=== PATIENT | female | born 1980 | race Caucasian/White ===

== ENCOUNTER → 2017-07-29 16:38 | Outpatient (CLI) | payer MEDICAID, SELFPAY ==
[2017-07-29 17:17] LABS: Hematocrit 38.4 % (37-47); Hemoglobin 12.8 g/dl (12.0-15.0); Mean Corp Hgb Conc 33.3 g/gl (32-36); Mean Corpuscular Hgb 31.3 pg (27.0-32.0); Mean Corpuscular Volume 93.9 fL (81-99); Platelet Count 225 K/mm3 (150-450); RBC Distribution Width CV 13.2 % (11.6-14.6); Red Blood Count 4.09 M/mm3 (4.2-5.4)
[2017-07-29 17:18] LABS: Scan Indicated on CBC? Y/N NO
[2017-07-29 17:51] LABS: Glucose Challenge Gest 1H 50g 163 mg/dL (70-140)
== END ==
PROVIDERS: Family Provider Internal Medicine; PCP Internal Medicine; Visit Provider Obstetrics & Gynecology
DX: Z34.83 Encounter for supervision of other normal pregnancy, third trimester (principal)
CPT/HCPCS: 36415; 82950; 85027

== ENCOUNTER → 2017-08-01 06:58 | Outpatient (CLI) | payer MEDICAID, SELFPAY ==
[2017-08-01 08:47] LABS: Glucose GTT-Gestation. Fasting 75 mg/dL (<105)
[2017-08-01 09:39] LABS: Glucose GTT-Gestational 1 Hr 119 mg/dL (<190)
[2017-08-01 11:08] LABS: Glucose GTT-Gestational 2 Hr 94 mg/dL (<165)
[2017-08-01 11:46] LABS: Glucose GTT-Gestational 3 Hr 77 L (<145)
== END ==
PROVIDERS: Family Provider Internal Medicine; PCP Internal Medicine; Visit Provider Obstetrics & Gynecology
DX: O99.810 Abnormal glucose complicating pregnancy (principal); Z3A.00 Weeks of gestation of pregnancy not specified
CPT/HCPCS: 36415; 82951; 82952

== ENCOUNTER → 2017-09-23 17:42 | Outpatient (CLI) | payer MEDICAID, SELFPAY ==
[2017-09-23 20:22] LABS: Group B Strep DNA By PCR Negative (Negative); Internal Control PASS; Probe Check PASS; Specimen Processing Control PASS
== END ==
PROVIDERS: Family Provider Internal Medicine; PCP Internal Medicine; Visit Provider Obstetrics & Gynecology
DX: Z36.85 Encounter for antenatal screening for Streptococcus B (principal)
CPT/HCPCS: 87081; 87653

== ENCOUNTER 2017-10-09 09:50 | Inpatient (IN) | payer MEDICAID, SELFPAY ==
[2017-10-09 10:01] LABS: ROM Internal Control Test YES-OK TO RESULT pt. (Internal QC); ROM Patient Test POSITIVE (Negative)
[2017-10-09] MEDS: Lactated Ringers 1,000 ML 50 ML IV ×2 (10:15→10:50)
[2017-10-09 10:30] LABS: Hematocrit 41.6 % (37-47); Hemoglobin 14.1 g/dl (12.0-15.0); Mean Corp Hgb Conc 33.9 g/gl (32-36); Mean Corpuscular Hgb 31.5 pg (27.0-32.0); Mean Corpuscular Volume 93.1 fL (81-99); Platelet Count 169 K/mm3 (150-450); RBC Distribution Width CV 13.3 % (11.6-14.6); RBC Distribution Width SD 43.9 fl (35.1-43.9); Red Blood Count 4.47 M/mm3 (4.2-5.4); White Blood Count 8.4 K/mm3 (4.4-11.0)
[2017-10-09 10:38] LABS: Scan Indicated on CBC? Y/N NO
[2017-10-09 10:39] VITALS: BMI 26.6
[2017-10-09] MEDS: Ondansetron 4 MG/2 ML Vial IV (11:55)
[2017-10-09] MEDS: Oxytocin 30 units/NS 500 ml 30 UNITS/500 ML IV.SOLN 334 UNITS IV (12:16)
--- NOTE | 2017-10-09 12:29 | PCM.OB.VAG ---
Vaginal Delivery Maternal Presentation: Active Labor Amniotic Membrane Rupture Type: Spontaneous at home Amniotic Fluid Description: Clear Final LINDSAY: 10/22/17 Final LINDSAY Source: US <20 weeks Gestational age: 38 Weeks and 1 Days Date of Procedure: 10/09/17 Pre-Operative Diagnosis: 38 1/7 wk labor. Post-Operative Diagnosis: Same Surgery/ Procedure Performed: Spontaneous Vaginal Delivery Type of Anesthesia: Epidural Description of Procedure: of a diaz viable female over intact perineum. Head delivered QUINTON. No nuchal cord, Shoulders delivered easily. OP and nares bulb suctioned and to maternal abdomen with spont cry. Delayed cord clamp., then clamped x two and cut. PP exam: no lacerations. Placenta delivered by spont expulsion, expression 3V normal appearing, intact with trailing membranes. EBL 200 cc Pt and infant tolerated delivery well. To recovery, stable condition. Ray Mandie Counts correct Presentation: QUINTON Placental Delivery Description: Spontaneous, Expressed Placenta Disposition: [facility] Cord Vessel Description: 3 Vessels Cord Entanglement: None Estimated Blood Loss: 200 Infant A gender: Female (1 minute): 7 (5 minute): 9 Episiotomy Description: None Laceration: None Medications given after delivery: IV Pitocin Complications: None
--- NOTE | 2017-10-09 12:37 | DCINST_ITS ---
Discharge Diet: No Restrictions Discharge Activity: May Shower, May Take a Tub Bath Return to work on:: 11/24/17 May resume sexual activity in: 4-6 weeks Additional Activity Instructions:: Nothing in the vagina for 4-6 weeks. You may return to work/school in 6 weeks. Additional Instructions: If you experience any of the following, contact your healthcare provider. * Bleeding that soaks a pad every hour for 2 hours * Fever 100.4 or higher * Unrelieved abdominal pain * Problems urinating (including inability to urinate or burning while urinating) . * Visual changes * Severe headache * Flu-like symptoms * Pain or redness in one of both of your breasts * Pain, warmth, tenderness or swelling in your legs, especially the calf area * Frequent nausea and vomiting * Symptoms of depression or anxiety If you experience any of the following, call 911 or go to the nearest Emergency Room. * Chest pain * Problems breathing * Seizure activity * Partial or complete paralysis of a body part, slurred speech, weakness or drooping of the face, or a sudden inability to walk or hold your balance Allergies/Adverse Reactions: Allergies No Known Allergies Allergy (Verified 01/14/17 18:36) Medications to take at Discharge Fluoxetine [Prozac] 80 mg PO DAILY 09/24/16 Ferrous Gluconate [Iron] 180 mg PO DAILY 01/14/17 Vits [Prenatabs FA] 1 tablet PO DAILY 01/14/17 Levothyroxine [Synthroid] 25 mcg PO DAILY 10/09/17 Please Follow Up With: Gaye Gastelum MD - [phone] When: Call to make an appointment with your doctor in 6 weeks. Primary Care Physician: Jami Ocampo MD [Primary Care Provider] - Proposed Discharge Date: 10/11/17
[2017-10-09] MEDS: Oxytocin 30 units/NS 500 ml 30 UNITS/500 ML IV.SOLN 167 UNITS IV (12:50)
[2017-10-09] MEDS: Naproxen 250 MG Tablet PO (13:02)
[2017-10-09] MEDS: 0.9% Saline Lock 10 ML Syringe IV (13:58)
[2017-10-09] MEDS: oxyCODONE 5 MG Tablet PO (14:12)
[2017-10-09 16:35] VITALS: BP 128/66; PULSE 69; RESP 20; TEMP 36.9
[2017-10-09 20:00] VITALS: BP 118/57; PULSE 76; RESP 16; TEMP 37.1
[2017-10-09] MEDS: Acetaminophen 500 MG Tablet 1000 MG PO (20:38)
[2017-10-10 00:37] VITALS: BP 112/60; PULSE 63; RESP 16; TEMP 37.1
[2017-10-10 04:17] VITALS: BP 126/59; PULSE 63; RESP 16; TEMP 36.6
--- NOTE | 2017-10-10 06:34 | PCM.PN.OB ---
Subjective: PPD#1 Doing well. Nursing. Pain contol ok. Would like to go home today. No concerns voiced. - Physical Exam General: Alert, Oriented x3, Cooperative, No apparent distress HEENT: Atraumatic Neck: Supple Abdomen: Soft - Fundus firm NT, inferior to umbilicus Neurological: Cranial nerves II-XII grossly intact Psych/Mental Status: Normal Affect Vital Signs Temp Pulse Resp BP 97.8 F 63 16 126/59 H 10/10/17 04:17 10/10/17 04:17 10/10/17 04:17 10/10/17 04:17 Oxygen Delivery Method Room Air Weight: 74.9 kg Body Mass Index (BMI) 26.6 Laboratory Tests Past 24 Hrs 10/09/17 10/09/17 10/09/17 09:44 10:15 10:15 WBC 8.4 RBC 4.47 Hgb 14.1 Hct 41.6 MCV 93.1 MCH 31.5 MCHC 33.9 RDW 13.3 RDW Differential 43.9 Plt Count 169 MPV 11.0 Vag Amniotic Fld Detect POSITIVE H Blood Type O POSITIVE Antibody Screen NEGATIVE Medical Necessity - Tobacco Use Smoking Status: Never smoker Assessment/Plan All Active Problems Overdose (Acute) Depression (Acute) PPD#1 Stable . Requests dischg today. RTO in 6 wk for pp check, prn sooner.
[2017-10-10] MEDS: Levothyroxine 25 MCG TABLET PO (06:43)
[2017-10-10] MEDS: Naproxen 250 MG Tablet PO (06:45)
[2017-10-10 08:21] VITALS: BP 122/60; PULSE 73; RESP 16; TEMP 36.7; O2SAT 98
[2017-10-10 14:00] VITALS: BP 114/69; PULSE 83; RESP 16; TEMP 36.7; O2SAT 97
== END 2017-10-10 14:00 | disposition home or self-care (01) | DRG 373 ==
LOC: WPOUT 09:50 → WP 12:15
PROVIDERS: Admitting Provider Obstetrics & Gynecology; Family Provider Internal Medicine; PCP Internal Medicine; Visit Provider Obstetrics & Gynecology
DX: O80 Encounter for full-term uncomplicated delivery (principal); Z3A.38 38 weeks gestation of pregnancy; Z37.0 Single live birth
CPT/HCPCS: 59025; 59050; 84112; 85027; 86850; 86900; 99218; J7120; A4216; G0378; J2405

== ENCOUNTER → 2018-03-23 11:39 | Outpatient (CLI) | payer MEDICAID, SELFPAY ==
[2018-03-23 14:51] LABS: Chlamydia Trachomatis by PCR Negative (Negative); Neisserai gonorrhoeae by PCR Negative (Negative); Probe Check PASS; Sample Adequacy Control PASS; Specimen Processing Control PASS
== END ==
PROVIDERS: Visit Provider Obstetrics & Gynecology
DX: Z11.3 Encounter for screening for infections with a predominantly sexual mode of transmission (principal)
CPT/HCPCS: 87491; 87591

== ENCOUNTER 2019-01-08 10:42 | Day surgery (SDC) | payer MEDICAID, SELFPAY ==
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
[2019-01-08] VITALS (10 sets, daily range): BP systolic 79–122; BP diastolic 47–70; PULSE 64–72; RESP 16; TEMP 36.3–36.9; O2SAT 96–100; BMI 22.3
--- NOTE | 2019-01-08 | FALS_PTH ---
PATIENT: JAMI HERNANDEZ LOC: [facility] [place] U#:[id number] AGE/SX: 38/F ROOM: RE01/08/[address]: Dr. Gaye Gastelum MD : 1980 BED: DIS: 01/08/2019 SPEC #: [id number] RECD: 01/08/19 14:07 STATUS: JENNIFER FABIAN #: [id number] NOEL: 01/08/19 00:[address]: Gaye Gastelum DEPT: SURGICAL PATHOLOGY RECD BY: Maksim Izquierdo ENTERED: 01/08/19 14:07 SP TYPE: FALL TUBES OTHR DR: Dr. Jami Ocampo MD Tissues: Fallopian tube Procedures: Surgery Specimen Level II HEADER OPERATION: Laparoscopic bilateral salpingectomy, IUD removal PRE-OP DIAGNOSIS: Sterilization request TISSUE SUBMITTED: Bilateral fallopian tubes MICROSCOPIC DIAGNOSIS Bilateral fallopian tubes, salpingectomy: Bilateral fallopian tubes including fimbrial ends, no pathologic diagnosis. SJ:[email or web address] 01/11/19 MICROSCOPIC DESCRIPTION Slides are reviewed. GROSS DESCRIPTION Received is one container labeled with the patient's name and designated bilateral fallopian tubes. The specimen consists of two fallopian tubes with an average length of 4.5 cm and has an average diameter of 0.5 cm. Both fallopian tubes have normal fimbriated ends. No mass lesions are identified. Enamel Dipper sections are submitted in two cassettes as follows: 1 - one fallopian tube, 2 - the other fallopian tube. / AM:giovanny 01/08/19 TC:4 CPT: 83698 x2
[2019-01-08 11:01] LABS: Internal QC Validated? YES +Cl - CLEAR BKGD; Pregnancy, Urine Negative Negative
[2019-01-08] MEDS: Lactated Ringers 1,000 ML 150 ML IV ×2 (11:28→13:41)
--- NOTE | 2019-01-08 11:53 | PCM.DC.TUB ---
Discharge Diet: No Restrictions Discharge Activity: May not drive while taking narcotic pain medications., May Shower, May Take a Tub Bath Return to work on:: 01/11/19 May resume sexual activity in: 1 week - when comfortable. Additional Activity Instructions:: Ambulate often the next week after surgery. Nothing in the vagina for 5 days. Call your doctor if you observe: Fever of 101 or Higher, Uncontrolled pain Change Dressing in (Days):: 7 Remove Dressing in (days):: 7 Cleanse incision/area with: Soap & Water, Keep Dressing Clean & Dry Additional Instructions: You may take two Ibuprofen or two Aleve by mouth every 6 hrs as needed for milder pain Take Tylenol #3 1 tablet every 6 hrs for moderate to severe pain. Rest on day of surgery Resume activity as comfortable on the day after surgery. Allergies/Adverse Reactions: Allergies No Known Allergies Allergy (Verified 01/08/19 11:13) Medications to take at Discharge Fluoxetine [Prozac] 80 mg PO QHS 09/24/16 Multivitamin [Multivitamins] 1 ea PO DAILY 12/24/18 Slo Iron Tab 50 mg PO DAILY 12/24/18 busPIRone [Buspar] 10 mg PO BID 12/24/18 Acetaminophen/Codeine #3 [Tylenol#3] 1 tablet PO Q6H PRN PRN 2 Days #5 tablet 01/08/19 The following prescriptions were given: Acetaminophen/Codeine #3 [Tylenol#3] 1 tablet PO Q6H PRN PRN 2 Days #5 tablet PRN Reason: Mod-Severe Pain (4-10/10) Transmission Status: Sent to [facility] Primary Care Physician: Jami Ocampo MD [Primary Care Provider] - Test Results: Test results from this visit will be discussed in further detail at your follow-up appointment, if applicable. Please Follow Up With: Gaye Gastelum MD - [phone] When: Office appointment in 2 wks for postoperative follow up. Proposed Discharge Date: 01/08/19
--- NOTE | 2019-01-08 12:34 | OP.PCM_ITS ---
Report of Operation Date of Procedure: 01/08/19 Pre-Operative Diagnosis: sterilization request. Requests IUD removal Post-Operative Diagnosis: Same Surgery/Procedure Performed:: Laparoscopic bilateral salpingectomy; removal of IUD Description of Surgical Findings:: Findings: There is a normal-appearing anteverted uterus. Fallopian tubes and ovaries are within normal limits. Gross inspection of the bowel, omentum, liver edge and appendix are also within normal limits. Photos were taken of the uterus and ovaries after the bilateral partial salpingectomy, and of the right upper quadrant/liver edge and appendix. test inspection engineer: Rashad Miles Type of Anesthesia:: General Anesthesiologist: Óscar Odom CRNA Special Medications: 1/4 % marcaine with epinephrine 10 cc as subcutaneous skin block. Toradol 30 mg IV times one Specimen's removed: bilateral fallopian tubes Drains: althea deng Estimated Blood Loss (mL): 10 Fluids Replaced: LR Description of Procedure: Narrative account: After the risks, benefits, alternatives of the procedure have been reviewed with the patient, informed consent was obtained. The patient was taken to the operating room with an IV running. She was positioned on the operating table in dorsal supine position, where she was given general anesthesia. Once asleep she was repositioned into the dorsal lithotomy position and prepped and draped in the usual sterile fashion. A red Deng catheter was used to drain the bladder prior to initiating the case. A Graves speculum was placed into the vagina and the cervix brought into view. The IUD string was visualized and grasped with a ring forceps and removed and set aside to be discarded later. The speculum was removed. A sponge stick was then placed into the cervix to allow manipulation of the cervix and uterus during the case. Attention was then turned to the anterior abdominal wall where 0.25% percent Marcaine with epinephrine was instilled at the suprapubic and infraumbilical skin and at a point midway between the two, in the midline. Skin incisions were then created in the midline at the suprapubic skin, at the infraumbilical skin, and at a point in the midline midway between the two. While maintaining upward traction of the anterior abdominal wall, a Veress needle was inserted through the umbilical incision into the peritoneal cavity. There was free drop of saline, low opening pressure and free flow of CO2 noted. Once the intra-abdominal pressure had reached 12 mmHg the Veress needle was removed and a bladeless 5 mm trocar was inserted through the infraumbilical skin incision into the peritoneal cavity. Correct placement was confirmed using the scope. Under direct visualization then with the patient in Trendelenburg position, a bladeless 5 mm trocar was inserted in through the suprapubic skin incision into the peritoneal cavity and at the mid lower abdominal incision midway between the infraumbilical and suprapubic trocars. The uterus was anteverted and both ovaries and fallopian tubes were within normal limits. The right fallopian tube was grasped and retracted medially and using a LigaSure device the right fallopian tube was excised from the ovary and mesosalpinx to the level of the uterine fundus. Excellent hemostasis was noted at the excision site. The right fallopian tube was brought through the suprapubic trocar and set aside for later pathology review. In a similar manner the left fallopian tube was grasped and retracted medially and the fallopian tube was excised and removed from the abdominal cavity through the suprapubic trocar. The fallopian tubes were sent to pathology. Excellent hemostasis was noted by visualization of the pelvis, ovaries, and remaining mesosalpinx. Photos were taken of the uterus and bilateral remaining ovaries and of the right upper quadrant and liver edge and normal appearing appendix At this point the procedure was terminated. The pneumoperitoneum was reduced and the instruments and trocars were removed from the anterior abdominal wall skin. The skin incisions were closed with 4-0 Monocryl in a subcuticular fashion Dermabond and op sites were applied to the skin. The sponge stick was then removed from the vagina. The patient was returned to dorsal supine position. She was awakened from general anesthesia. She was transferred to the recovery room bed in stable condition after tolerating the procedure well. Sponge, lap, needle and instrument counts were correct x two. Medications given preop and intra-op included: 10 cc of quarter percent Marcaine with epinephrine used as a johnson bcutaneous block, and Toradol 30 mg IV x1. For a complete listing of medications given preop and intra-op please see the anesthesia record. - Complications none - Admit VTE Documentation VTE Present on Admission: No VTE Mechan Device Prophylaxis: SCD's VTE Pharm Prophylaxis ordered?: No
== END 2019-01-08 14:29 | disposition home or self-care (01) ==
LOC: SDC 10:43 → AC 10:44
PROVIDERS: Anesthesiology; Family Provider Internal Medicine; PCP Internal Medicine; Referring Provider Obstetrics & Gynecology; Visit Provider Obstetrics & Gynecology
PROC: (CPT 58661; principal; 2019-01-08 12:00)
DX: Z30.2 Encounter for sterilization (principal); D64.9 Anemia, unspecified; F32.9 Major depressive disorder, single episode, unspecified; Z79.899 Other long term (current) drug therapy
CPT/HCPCS: 58301; 58661; 81025; 88302; J7120; J2405

== ENCOUNTER → 2020-10-23 09:15 | Outpatient (CLI) | payer OTHER, MEDICAID, SELFPAY ==
[2019-01-08 11:14] VITALS: BMI 22.3
[2020-10-23 11:50] LABS: Hematocrit 40.6 % (37-47); Hemoglobin 12.9 g/dL (12.0-15.0); Mean Corp Hgb Conc 31.8 g/dL (32-36); Mean Corpuscular Volume 91.2 fL (81-99); Mean Platelet Vol. 9.8 fl (6.2-12.0); Platelet Count 296 K/mm3 (150-450); RBC Distribution Width CV 12.7 % (11.6-14.6); RBC Distribution Width SD 42.2 fl (35.1-43.9); Red Blood Count 4.45 M/mm3 (4.2-5.4); White Blood Count 5.3 K/mm3 (4.4-11.0)
[2020-10-23 12:14] LABS: Estradiol 93.4 pg/mL; Follicle Stimulating Hormone 6.4 mIU/mL; Luteinizing Hormone 6.1 mIU/mL; Prolactin 12.1 ng/mL; T4 Free Direct 0.73 ng/dL (0.76-1.46); Thyroid Stim Hormone (TSH) 1.33 uIU/mL (0.358-3.74)
[2020-10-26 13:28] LABS: HPV APTIMA, High Risk Negative (Negative)
== END ==
PROVIDERS: PCP Internal Medicine; Visit Provider Obstetrics & Gynecology
DX: N93.9 Abnormal uterine and vaginal bleeding, unspecified (principal); Z12.4 Encounter for screening for malignant neoplasm of cervix
CPT/HCPCS: 36415; 82670; 83001; 83002; 84146; 84439; 84443; 85027; 87624; 88175; G0145

== ENCOUNTER 2021-07-17 14:49 | Outpatient (CLI) | payer OTHER, MEDICAID, SELFPAY ==
--- NOTE | 2021-07-17 14:30 | EMB_PTH ---
PATIENT: JAMI HERNANDEZ LOC: [facility] U#:[id number] AGE/SX: 41/F ROOM: RE07/17/[address]: Dr. Yousif Iyer MD : 1980 BED: DIS: 07/17/2021 SPEC #: [id number] RECD: 07/17/21 15:20 STATUS: JENNIFER REAlejandro #: [id number] NOEL: 07/17/21 14:[address]: Yousif Iyer DEPT: SURGICAL PATHOLOGY RECD BY: Raghu Kc ENTERED: 07/18/21 09:51 SP TYPE: ENDOM BX/C VINITA DR: Dr. Jami Ocampo MD Tissues: Endometrium, NOS Procedures: Surgery Specimen Level IV HEADER OPERATION: Endometrial biopsy PRE-OP DIAGNOSIS: Abnormal uterine bleeding TISSUE SUBMITTED: Endometrial biopsy MICROSCOPIC DIAGNOSIS Endometrial biopsy: Interval endometrium with focal granular and stromal breakdown. ADIA:[email or web address] 07/19/2021 MICROSCOPIC DESCRIPTION Slides are reviewed. GROSS DESCRIPTION Received in fixative is one container labeled with the patient's name and designated endometrial biopsy. The specimen consists of multiple fragments of hemorrhagic soft tissue that in aggregate measure 3 x 2.5 x 0.2 cm. The specimen is totally submitted in one cassette. / SJ:giovanny 07/18/2021 TC:5 CPT: 43228
== END 2021-07-17 23:59 | disposition home or self-care (01) ==
LOC: LABSPEC 14:53
PROVIDERS: PCP Internal Medicine; Visit Provider Obstetrics & Gynecology
DX: N93.9 Abnormal uterine and vaginal bleeding, unspecified (principal)
CPT/HCPCS: 88305

== ENCOUNTER 2021-11-05 08:00 | Day surgery (SDC) | payer OTHER, MEDICAID, SELFPAY ==
[2021-11-05 08:14] VITALS: BP 105/60; PULSE 72; RESP 16; TEMP 36.3; O2SAT 100; BMI 20.9
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
[2021-11-05] MEDS: Lactated Ringers 1,000 ML 30 ML IV (08:29)
--- NOTE | 2021-11-05 09:25 | EMB_PTH ---
PATIENT: JAMI HERNANDEZ LOC: [facility] [place] U#:[id number] AGE/SX: 41/F ROOM: RE11/05/[address]: Dr. Yousif Iyer MD : 1980 BED: DIS: 11/05/2021 SPEC #: [id number] RECD: 11/05/21 13:53 STATUS: JENNIFER REAlejandro #: [id number] NOEL: 11/05/21 09:[address]: Yousif Iyer DEPT: SURGICAL PATHOLOGY RECD BY: Yulisa Baptiste ENTERED: 11/06/21 08:05 SP TYPE: ENDOM BX/C VINITA DR: Dr. Jami Ocampo MD Tissues: Endometrium, NOS Procedures: Surgery Specimen Level IV HEADER OPERATION: Hysteroscopy, D & C Chiquis, endometrial ablation PRE-OP DIAGNOSIS: Abnormal uterine and vaginal bleeding TISSUE SUBMITTED: Endometrial curettings MICROSCOPIC DIAGNOSIS Endometrial curettings: Secretory endometrium. SJ:[email or web address] 11/07/2021 MICROSCOPIC DESCRIPTION Slides are reviewed. GROSS DESCRIPTION Received in fixative is one container labeled with the patient's name and designated endometrial curettings. The specimen consists of multiple irregular fragments of rose-brown soft tissue that in aggregate measure 5 x 3 x 0.2 cm. The entire specimen is submitted in two cassettes. / SJ:rg 11/06/2021 TC:4 CPT: 18978
--- NOTE | 2021-11-05 09:59 | DCINST_ITS ---
Discharge Instructions Diet Discharge Diet: No restrictions Activity Discharge Activity: Return to Normal Activity, May Drive and May Shower May resume sexual activity in: 4-6 weeks Weight Bearing Status: Weight bearing as tolerated Dressing / Incision Call your doctor if your incision/area has: Continuous Slow Oozing and Foul Smelling Discharge Call your doctor if you observe: Fever of 101 or Higher, Shortness of breath and Chest pain Follow Up Care Please Follow Up With: Yousif Iyer MD When: 2 weeks postoperatively Test Results: Test results from this visit will be discussed in further detail at your follow- up appointment, if applicable. Discharge Plan Admission Attending Provider: Yousif Iyer Primary Care Provider: Jami Ocampo Discharge Orders/Prescriptions Prescriptions: No Action fluoxetine 20 MG capsule 80 mg PO QHS buspirone 5 MG tablet 15 mg PO DAILY [place] Tab 50 mg PO DAILY amitriptyline 10 mg Tablet 10 mg PO QHS eszopiclone [Lunesta] 3 mg Tablet 3 mg PO QHS meloxicam 15 mg Tablet 15 mg PO DAILY Referrals / Follow Up: Jami Ocampo MD [Primary Care Provider] - Disposition Disposition (needs filled in before D/C Order can be placed): Home, Self Care
--- NOTE | 2021-11-05 09:59 | PCM.OPRPT ---
Report of Operation Date of Procedure: 11/05/21 Pre-Operative Diagnosis: Abnormal uterine bleeding Post-Operative Diagnosis: Abnormal uterine bleeding Surgery/Procedure Performed:: Hysteroscopy, dilation and curettage, endometrial ablation via Chiquis device Description of Surgical Findings:: Surgeon: Yousif Iyer MD Anesthesia: MAC EBL: 10 cc Urine output: Minimal IV fluids: 400 cc Complications: None Specimen: Endometrial curettings Findings: No pathology noted on hysteroscope. Chiquis device set to 6 cm. Post procedure hysteroscope with no new pathology Consent: Patient with abnormal uterine bleeding elects for hysteroscopy, dilation and curettage, endometrial ablation via Chiquis. Patient understands the risk of the procedure include but are not limited to visceral or vascular injury, prolonged hospitalization, blood loss need for transfusion, reoperation. Patient state understanding and wished to proceed. All questions were answered and consent was signed. Procedure: Patient was brought back to the OR where MAC anesthesia was found to be adequate. Patient was prepared and draped in a dorsolithotomy position with yellowfin stirrups. A weighted speculum was placed in the posterior aspect of the vagina and cervical dilators were used to dilate the cervix. Hysteroscope was inserted under direct visualization and above findings were noted. Sharp curettage was performed and sent to pathology. Uterine cavity length found to be 9 cm, cervical length found to be 3 cm. Chiquis device set to 6 cm and inserted under direct visualization. Safety test passed x2. 2 minutes of endometrial ablation performed. Post procedure hysteroscope was inserted and above findings were noted. Good hemostasis was noted. All counts were correct x2. Patient tolerated the procedure well and was brought to recovery in a stable condition.
[2021-11-05 10:03] VITALS: BP 105/60
[2021-11-05 10:10] VITALS: BP 105/60; BP 95/49; PULSE 65; RESP 16; O2SAT 100
[2021-11-05] MEDS: Ketorolac 30 MG/ML Syringe IV (10:11)
[2021-11-05 10:15] VITALS: BP 105/60; BP 94/67; PULSE 69; RESP 16; O2SAT 99
[2021-11-05 10:30] VITALS: BP 105/60; BP 107/69; PULSE 69; RESP 16; TEMP 37.5; O2SAT 99
[2021-11-05 10:54] VITALS: BP 105/60; BP 112/65; PULSE 84; RESP 16; TEMP 36.9; O2SAT 98
== END 2021-11-05 11:01 | disposition home or self-care (01) ==
LOC: SDC 08:01 → AC 08:02
PROVIDERS: PCP Internal Medicine; Referring Provider Obstetrics & Gynecology; Visit Provider Obstetrics & Gynecology
PROC: 0U5B8ZZ Destruction of Endometrium, Via Natural or Artificial Opening Endoscopic (ICD-10-PCS; CPT 58558; principal; 2021-11-05 09:10)
DX: N93.9 Abnormal uterine and vaginal bleeding, unspecified (principal); F32.9 Major depressive disorder, single episode, unspecified; F41.9 Anxiety disorder, unspecified; E61.1 Iron deficiency; F84.0 Autistic disorder; Z79.899 Other long term (current) drug therapy
CPT/HCPCS: 58563; 88305; J7120; J2405

== ENCOUNTER 2024-08-30 08:00 | Outpatient (RCR) | payer MEDICAID, SELFPAY ==
[2024-09-01 11:49] VITALS: BP 121/50; PULSE 71
== END 2024-09-25 23:59 ==
LOC: BHIOP 08:00
PROVIDERS: PCP Internal Medicine; Referring Provider Psychiatry & Neurology Psychiatry; Visit Provider Psychiatry & Neurology Psychiatry
DX: F33.2 Major depressive disorder, recurrent severe without psychotic features (principal); F41.0 Panic disorder [episodic paroxysmal anxiety]; F43.10 Post-traumatic stress disorder, unspecified; Z86.59 Personal history of other mental and behavioral disorders
CPT/HCPCS: H2012; H2020; S9480; T1002; 90834; 90837

== ENCOUNTER 2024-09-27 07:28 | Outpatient (RCR) | payer MEDICAID, SELFPAY ==
[2024-09-26 00:21] VITALS: BP 121/50; PULSE 71
== END 2024-10-22 14:41 | disposition home or self-care (01) ==
LOC: BHIOP 07:28
PROVIDERS: PCP Internal Medicine; Referring Provider Psychiatry & Neurology Psychiatry; Visit Provider Psychiatry & Neurology Psychiatry
DX: F33.2 Major depressive disorder, recurrent severe without psychotic features (principal); F41.0 Panic disorder [episodic paroxysmal anxiety]; F43.10 Post-traumatic stress disorder, unspecified; Z86.59 Personal history of other mental and behavioral disorders
CPT/HCPCS: H2020; S9480; 90837

== ENCOUNTER 2024-11-02 08:00 | Outpatient (RCR) | payer MEDICAID, SELFPAY ==
--- NOTE | 2024-11-02 10:05 | BH.SGPN.GN ---
Behaviors/Verbalizations/Mental Status: []Pt alert and oriented, casually dressed and groomed. Eye contact fair. Motor activity appropriate. Speech within normal limits. Affect constricted, mood dysthymic. Thoughts linear, logical, no signs of hallucinations or delusions Client Response/Progress/Benefit: [] Pt took notes and contributed to group discussions. Attentive during psychoeducation on growth mindset. Interactive group discussion on fixed mindset in which group verbalized their current fixed mindsets and how they affect their mental health. Pt shared common fixed mindset thoughts they have. Pt shared a personal fixed thought I've failed in every way possible in life.? Pt able to connect negative impact fixed thoughts have on functioning. Pt benefited from increased awareness of growth mindset and fixed thoughts and how fixed thoughts impact their mental health. Will continue IOP tx to improve emotion regulation, challenge negative thoughts, and prevent decompensation.
--- NOTE | 2024-11-02 10:44 | BH.MDN ---
Multi-Disciplinary Note Note 45-min Individual: Time Started:: 09:00 Date: 11/02/24 Purpose of session/treatment goals addressed:: Purpose of session was to build rapport, gather background, and identify treatment goals. Eye Contact:: Good Motor Activity:: Restless Appearance:: Casual Speech:: Appropriate Mood:: Anxious and Depressed Affect:: Congruent Thoughts:: Linear, Logical and No evidence of hallucinations/delusions noted Staff Interventions:: thought challenging, CBT techniques, strengths perspective, treatment planning and goal setting Client Response:: Client reported she has returned to IOP because she recognizes she really needs the help to feel better. Client stated she had a lot going on that was negatively impacting her ability to be consistent with her attendance. Client reported in the few weeks she was not in IOP she had significant struggles with depression and suicidal thoughts. Client stated she recognizes if she continues to avoid talking about the uncomfortable things she will continue to struggle with significant mental health issues. Client reported since returning to IOP she would like to learn healthy coping skills with strategies to be more consistent with follow through. Client stated she would also like to work on building her self-esteem and view of self. Client reported she had learned in the first time in IOP how frequently she talks negatively to herself and would like to work on challenging this negativity. Client and therapist reviewed behavior activation. Client stated she would like to work on decreasing how much time she spends in her basement bedroom because she can see how this doesn't help her mood. Client worked with therapist to identify several behavior changes that client could start focusing on to help with improving mood. Risks/Concerns:: Client reports chronic suicidal thoughts. Client denies active suicidal intention, plan, or intention. Identifies children as protective factor. Progress Toward Goals/Plan:: Progress limited, client reporting increased depression and thoughts of for the last few weeks. Client stated she has returned over the last few of weeks of staying in her bed most of the day and isolating from family. Client stated she is hoping to learn better coping skills, improve ability to manage stressors, and improve view of self. Plan is for client to continue IOP to improve daily functioning, challenge distortions, and prevent decompensation.
--- NOTE | 2024-11-02 11:10 | BH.SGPN.GN ---
Behaviors/Verbalizations/Mental Status: []Pt alert and oriented, neatly dressed and groomed. Eye contact good. Motor activity appropriate. Speech within normal limits. Affect congruent, mood dysthymic. Thoughts linear, logical, no signs of hallucinations or delusions. Client Response/Progress/Benefit: [] Pt was an active participant during activity and discussion. Pt did well to remain attentive and participate as group worked on identifying characteristics and benefits of adopting a growth mindset. Worked with fellow participants in reframing the example fixed thoughts into growth mindset thoughts. Pt worked on changing own fixed thought. Pt?s reframed thought was ?I can find the manning and two things can be true.? Pt attentive during discussion about different strategies that can help with fostering a growth mindset. Pt appeared to benefit from challenging own thoughts and engaging in the activity. Pt will continue IOP tx to increase distress tolerance, improve daily functioning, and increase self-confidence. Narrative Note: []
--- NOTE | 2024-11-02 14:24 | BH.MTP ---
Master Treatment Plan Patient Information Program Physician:: Dr. Souza Primary Therapist:: Georgina Cartagena, [facility] Psychiatric Diagnoses Psychiatric Diagnoses:: 1. Major depressive disorder, recurrent, severe without psychosis F33.2 Diagnosis Code(s):: F33.2 Problem/Goal #1 Problem/Goal #1 Stated Goal:: Client will reduce depressive symptoms, feelings of worthlessness, and anhedonia due to Major Depressive Disorder through Intensive Outpatient Program. Description of Barriers: Potential barriers to treatment include negative self-talk, anxious worries, skepticism towards trying healthy coping skills, and psychosocial stressors. Functional Impact: Brittany is a 44y/o female who presented to [facility] IOP program for further evaluation and treatment of depression and anxiety. She initially established with the IOP program 09/01/2024 due to having passive thoughts of , depression, and anxiety. She fell out of the program due to having difficulty leaving her house due to concerns for her appearance which she is struggled with for a long time and then had a planned absence. She now represents to continue the program. She reports that she has had a lot of stress recently but she feels she is handling it well but is still waiting for the other shoe to drop. Has been having mood that has been up and down and last week she felt very down. She notes she was started on pramipexole for RLS a couple of weeks ago and after she took it she became very depressed and had thoughts of suicide when stopped the medication and has not had any of those thoughts since then but is still been struggling with her mood. She reports she gets side effects and mood changes from most medicines and that even amoxicillin made her feel depressed before. Notes she is tried almost everything for mood and sleep without significant improvement. Does report she has low energy and has been having a lot of anxiety. One of her main complaints is sleep, she said when she falls asleep hydroxyzine helps her stay asleep but she has difficulty falling asleep and often feels anxious before bed. She takes Lunesta which sometimes works well and other times does not seem to work. Tried THC Gummies at bedtime without significant improvement. Was on Ambien 20 mg for many years but stopped taking this 11 years ago, she did try this again as it had been effective but she noticed it caused decreased mood so she is on Lunesta however on maximum dose. She has been on Prozac for very long time and she is unsure how helpful this is but it has been one of the medication she has been able to tolerate. Not presently having any SI/HI. No AH/VH. 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 Of note patient was placed on BuSpar 10 mg twice daily by the previous physician she is on IOP which she is no longer taking this, she is unsure why manage she is unsure if she has had an adverse effect or if it just did not work, discussed that it was still a low dose and there was room for titration if this needed to be trialed again Objectives Objective #1: Stated Objective: Client will learn and utilize 2-3 healthy coping strategies to manage depressive symptoms. Interventions: Therapist will utilize CBT techniques to assist client with understanding the connection between thoughts, feelings and behaviors. Education will be provided on behavioral activation. Therapist will assist client in learning internal coping strategies to manage depressive symptoms, along with helping client identify triggers. Discharge Criteria: Client will have achieved this goal when can verbalize and has practiced at least 2 healthy coping strategies that successfully manage depressive symptoms. Target Date: 12/14/24 Review Date: 11/30/24 Objective #2: Stated Objective: Identify at least 2-3 negative self-talk messages used to reinforce feelings of worthlessness and replace thoughts with positive messages. Interventions: Therapist will help client identify distorted, negative beliefs about self and replace with more realistic, affirmative messages. Discharge Criteria: Client will have achieved this goal when can verbalize at least 2 negative self-talk messages and effectively replace those thoughts with affirmative messages. Target Date: 12/14/24 Review Date: 11/30/24 Problem/Goal #2 Problem/Goal #2 Stated Goal:: Client will reduce overall frequency, intensity, and duration of the anxiety so that daily functioning is not impaired. Description of Barriers: Potential barriers to treatment include negative self-talk, anxious worries, skepticism towards trying healthy coping skills, and psychosocial stressors. Functional Impact: Brittany is a 44y/o female who presented to [facility] IOP program for further evaluation and treatment of depression and anxiety. She initially established with the IOP program 09/01/2024 due to having passive thoughts of , depression, and anxiety. She fell out of the program due to having difficulty leaving her house due to concerns for her appearance which she is struggled with for a long time and then had a planned absence. She now represents to continue the program. She reports that she has had a lot of stress recently but she feels she is handling it well but is still waiting for the other shoe to drop. Has been having mood that has been up and down and last week she felt very down. She notes she was started on pramipexole for RLS a couple of weeks ago and after she took it she became very depressed and had thoughts of suicide when stopped the medication and has not had any of those thoughts since then but is still been struggling with her mood. She reports she gets side effects and mood changes from most medicines and that even amoxicillin made her feel depressed before. Notes she is tried almost everything for mood and sleep without significant improvement. Does report she has low energy and has been having a lot of anxiety. One of her main complaints is sleep, she said when she falls asleep hydroxyzine helps her stay asleep but she has difficulty falling asleep and often feels anxious before bed. She takes Lunesta which sometimes works well and other times does not seem to work. Tried THC Gummies at bedtime without significant improvement. Was on Ambien 20 mg for many years but stopped taking this 11 years ago, she did try this again as it had been effective but she noticed it caused decreased mood so she is on Lunesta however on maximum dose. She has been on Prozac for very long time and she is unsure how helpful this is but it has been one of the medication she has been able to tolerate. Not presently having any SI/HI. No AH/VH. 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 Of note patient was placed on BuSpar 10 mg twice daily by the previous physician she is on IOP which she is no longer taking this, she is unsure why manage she is unsure if she has had an adverse effect or if it just did not work, discussed that it was still a low dose and there was room for titration if this needed to be trialed again Objectives Objective #1: Stated Objective: Client will learn and implement 2-3 calming skills to reduce overall anxiety and manage anxiety symptoms. Interventions: Therapist and group sessions will help client identify physiological warning signs of anxiety, increase awareness of thoughts that increase anxiety, and identify behaviors that reinforce anxious symptoms. Group and individual counseling will teach client calming skills to help manage anxious symptoms. Discharge Criteria: Client will have achieved this goal when can verbalize at least 2 calming skills and reports skills successfully help reduce anxious symptoms. Target Date: 12/14/24 Review Date: 11/30/24 Objective #2: Stated Objective: Client will identify 2-3 anxiety triggers and 2 coping skills to use when feeling anxious. Interventions: Therapist will assist client in exploring what triggers anxiety and teach client coping strategies to effectively manage anxiety symptoms. Discharge Criteria: Client will have met this goal when can identify at least 2 triggers to anxiety and verbalize two healthy ways to cope with feelings of anxiety. Target Date: 12/14/24 Review Date: 11/30/24
--- NOTE | 2024-11-02 14:31 | BH.PSA ---
Source of Information Presenting Problems/Circumstances Problems, Referral Source, Mental Status, Client: This is an update to completed Psychosocial Assessment dated 08/30/24. Since last psychosocial was recent, there has not been many changes to client's history. Refer to original psychosocial for additional detail and past history. Brittany is a 44y/o female who presented to [facility] IOP program for further evaluation and treatment of depression and anxiety. She initially established with the IOP program 09/01/2024 due to having passive thoughts of , depression, and anxiety. She fell out of the program due to having difficulty leaving her house due to concerns for her appearance which she is struggled with for a long time and then had a planned absence. She now represents to continue the program. She reports that she has had a lot of stress recently but she feels she is handling it well but is still waiting for the other shoe to drop. Mental Status Memory Recent Memory: Fair Remote Memory: Fair Concentration Concentration: Poor Eye Contact Eye Contact: Fair Speech Speech: Articulate and Congruent Thought Process Thought Process: Ruminations Insight: Fair Judgment: Fair Behavior: Anxious Orientation Orientation: Time, Person, Place and Situation Appearance Appearance: Appropriate Mood Mood: Anxious and Depressed Affect Affect: Alert Suicide Assessment Suicidal Ideation Have you ever felt like hurting yourself?: Yes Please explain:: Has been having mood that has been up and down and last week she felt very down. She notes she was started on pramipexole for RLS a couple of weeks ago and after she took it she became very depressed and had thoughts of suicide when stopped the medication and has not had any of those thoughts since then but is still been struggling with her mood. See previous psychosocial for detailed history of suicidal thoughts and behavior. Suicidal Intentional Rating Scale (SIRS): Suicidal thoughts (past) Physician Notification Violent Behavior/Abuse History Homicidal Ideation Do you have any homicidal thoughts? If so, explain:: No Adult Social History Age 18 to Present Describe your current support system:: Parents Business Resiliency Manager's Assessment Client's Needs What are the client's feelings about the program?: Client stated she really enjoyed the program her first time attending and is looking forward to being back in the program. What are the client's goals?: Client would like to learn skills to manage depression, improve view of self, and learn ways to challenge distortions. What are the client's strengths?: Resilience and intelligent. Diagnoses Diagnoses Diagnosis #1:: F33.2 Interpretive Summary Interpretive Summary Interpretive Summary: Brittany is a 44y/o female who presented to [facility] IOP program for further evaluation and treatment of depression and anxiety. She initially established with the IOP program 09/01/2024 due to having passive thoughts of , depression, and anxiety. She fell out of the program due to having difficulty leaving her house due to concerns for her appearance which she is struggled with for a long time and then had a planned absence. She now represents to continue the program. She reports that she has had a lot of stress recently but she feels she is handling it well but is still waiting for the other shoe to drop. Has been having mood that has been up and down and last week she felt very down. She notes she was started on pramipexole for RLS a couple of weeks ago and after she took it she became very depressed and had thoughts of suicide when stopped the medication and has not had any of those thoughts since then but is still been struggling with her mood. She reports she gets side effects and mood changes from most medicines and that even amoxicillin made her feel depressed before. Notes she is tried almost everything for mood and sleep without significant improvement. Does report she has low energy and has been having a lot of anxiety. One of her main complaints is sleep, she said when she falls asleep hydroxyzine helps her stay asleep but she has difficulty falling asleep and often feels anxious before bed. She takes Lunesta which sometimes works well and other times does not seem to work. Tried THC Gummies at bedtime without significant improvement. Was on Ambien 20 mg for many years but stopped taking this 11 years ago, she did try this again as it had been effective but she noticed it caused decreased mood so she is on Lunesta however on maximum dose. She has been on Prozac for very long time and she is unsure how helpful this is but it has been one of the medication she has been able to tolerate. Not presently having any SI/HI. No AH/VH. 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 Treatment Plan Recommendations Recommendations Guidelines Recommendations:: The patient will begin IOP in [facility] at [facility]. The program's structure, support, education, and therapy aim to prevent deterioration of symptoms and avoid the need for PHP or inpatient hospitalization.
--- NOTE | 2024-11-03 09:00 | BH.SGPN.GN ---
Behaviors/Verbalizations/Mental Status: [] Pt alert and oriented, neatly dressed and groomed. Eye contact fair. Motor activity appropriate. Speech within normal limits. Affect congruent, mood depressed. Thoughts linear, logical, no signs of hallucinations or delusions. Reviewed pt?s symptom tracker, no risk for suicidal ideation, plan, or intent 11/03/24. Client Response/Progress/Benefit: []Pt was an active participant in group discussions. Attentive. Able to identify mental health wins including being back in IOP and looking forward to it and trying to keep an open-mind. Pt's stressor today is ?I have so many stressors and I stopped coming to IOP for a while.? The group offered pt encouragement and emotional support which pt reported was helpful. Pt is feeling apprehensive.? this morning. Pt receptive to feedback from peers. Benefited from group support, encouragement, and feedback. Will continue IOP tx to prevent decompensation, improve daily functioning, and increase use of healthy coping skills. ?? Narrative Note: []
--- NOTE | 2024-11-03 10:15 | BH.SGPN.GN ---
Behaviors/Verbalizations/Mental Status: [] Client alert and oriented, casually dressed and groomed. Eye contact good. Motor activity appropriate. Speech within normal limits. Affect congruent, mood anxious and depressed. Thoughts linear, logical, no signs of hallucinations or delusions. Client Response/Progress/Benefit: [] Client responded well to session AEB contributing to discussion, taking notes, and listening attentively to others. Group discussed the benefits of managed anger and anger as a secondary emotion. Client participated in anger iceberg discussion. Group reported outward personal signs of anger as lashing out verbally, physical fights, destruction of property, self-harm, and self-sabotage. Group Identified underlying emotions that contribute to anger including being dismissed, rejection, assumptions, being lied too, and micromanaging. Appeared to benefit from increased knowledge of the underlying emotions that impact anger and increased self-awareness of the internal and external consequences of anger. Client will continue IOP program to prevent decompensation, stabilize mood, and increase healthy coping. Narrative Note: []
--- NOTE | 2024-11-03 11:15 | BH.SGPN.GN ---
Behaviors/Verbalizations/Mental Status: [] client alert and oriented, casually dressed and groomed. Eye contact good. Motor activity appropriate. Speech within normal limits. Affect congruent, mood euthymic. Thoughts linear, logical, no signs of hallucinations or delusions. Client Response/Progress/Benefit: [] Client was an engaged participant throughout group AEB client providing input throughout discussion. Client contributed to the continued discussion of how people express anger as well as the underlying emotions of anger. Client participated in group activity that highlighted strategies to cope with anger. Group brainstormed healthy coping skills to help prevent anger and cope with it in the moment which included: mindfulness, deep breathing, journaling, going outside, and music. Client stated something she learned from today's group is importance of breaking her anger cycle by challenging her thoughts. Client appeared to benefit from brainstorming with the group potential strategies to manage anger in healthy ways. Recommended continued IOP to improve distress tolerance, increase healthy coping, and prevent decompensation.
--- NOTE | 2024-11-04 09:00 | BH.SGPN.GN ---
Behaviors/Verbalizations/Mental Status: [] Eye contact is good. Motor activity is appropriate. Appearance is casual. Speech is Appropriate. Mood is depression and anxious. Affect is congruent. Thoughts are linear and logical. No evidence of psychosis. Reviewed daily check in sheet and no reports of suicidal ideations or intent Client Response/Progress/Benefit: [] Pt was an active participant in group discussions. Daily symptom tracker notes 3/5 for anxiety and 2/5 for depression/irritability. Overall functioning and mood reported to be ?worse? than baseline. Able to identify mental health wins and healthy habits. ? I stepped outside my comfort zone? yesterday. Utilized behavioral activation and exercised. She changed up unhealthy routine which was leading to isolation, avoidance, and excessive sleep. Insight that she saw most tasks as overwhelming therefore would simply not engage throughout the day. Progress noted. Benefited from group support, encouragement, and feedback. Will continue in IOP to prevent decompensation, increase healthy coping, and improve functioning Narrative Note: []
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
--- NOTE | 2024-11-04 09:30 | BH.DR.ITP ---
Initial Treatment Plan Patient Information Visit Information: ADMISSION DATE: EXPECTED LOS: 6-8 weeks Diagnoses:: MDD Problems/Symptoms Problem #1:: MDD Symptom:: Intermittent low mood, thoughts of , poor sleep, fluctuations in appetite, low energy
--- NOTE | 2024-11-04 10:10 | BH.SGPN.GN ---
Behaviors/Verbalizations/Mental Status: [] Eye contact is good. Motor activity is appropriate. Appearance is casual. Speech is Appropriate. Mood is dysthymic. Affect is congruent. Thoughts are linear and logical. No evidence of psychosis. Client Response/Progress/Benefit: [] Client engaged participant at times during group session as evidenced by contributions during group discussions, appearing to listen to others, and taking notes. Client engaged in discussion about barriers that keep people from having difficult confrontations. Group identified potential reasons individuals avoid difficult conversations which included; feeling uncomfortable, reaction of others, fear, avoid conflict. Group also identified benefits to having crucial conversations. Pt identified things they do that impact their communication overly anxious and irritability. Client seemed to benefit from increased awareness and education about importance of having difficult conversations and recognizing the impact of avoiding such conversations. Client to continue IOP to prevent decompensation, increase healthy coping, and improve functioning. . Narrative Note: []
--- NOTE | 2024-11-04 10:20 | BH.NA_ITS ---
Physical Data Vital Signs Pulse Rate: 85 Blood Pressure: 130/79 Height/Weight Height: 1.68 m Weight:: 63.503 kg Weight in Pounds: 140.0 lbs Current Medication Compliance Medication Compliance Do you take your medication as prescribed?: Yes Nutritional History Appetite Nutritional Instructions: Describe your appetite:: Fair Additional nutritional information:: Client states she thinks she currently has a stomach ulcer (has a history of them) and states this causes a decrease in appetite and nausea/vomiting at times. Client also reports a history of anorexia, ongoing issues with body image, and frequent food binging. Functional Assessment Sleep Pattern Describe any problems with sleeping: Client states sleep is an ongoing struggle for her and has been taking medication for many years to aid in sleep. Sensory/Communication Assess Communication Problems Do you have difficulty understanding what people are saying?: No Medical Problems/History Hematologic Conditions Hematologic: Anemia Gastrointestinal Conditions Gastrointestinal: Other (See comments) (Client states in 2022, she had a bleeding ulcer and was treated for H. Pylori. Client states in 2023, she had 4 ulcers again. Client states she thinks she has an ulcer now due to her symptoms with her stomach, and states she is going to make an appointment to see a local GI (Dr. Cardozo).) Pain Assessment Do you have acute or chronic pain?: No Surgical History Surgical History Have you had any surgeries? If so, list type and date:: Yes (bladder repair, hernia repair, tubal ligation, uterine ablation) Substance Abuse Substance Abuse Please describe substance abuse in the last 30 days:: Client reports occasional social alcohol use. Client denies tobacco use. Client states she has used some THC to attempt to help with sleep. Client states she drinks 1 cup of coffee per day. Mental Status Summary Mental Status Significant Findings/Observations on Appearance and Mood:: Client is alert and oriented x 4. Client is casually groomed with good hygiene. Client is cooperative with assessment. Client makes good eye contact. Client's voice has normal rate and volume. Client has an appropriate affect. Client makes logical associations and has normal processing. Client denies delusions/hallucinations. Client denies current SI. Suicide Assessment Suicidal Ideation Are you currently or have you been suicidal in the past?: Yes Suicidal Intentional Rating Scale (SIRS): Suicidal thoughts (past) Physician Notification Past Psychiatric History MH Treatment Hx Past Psychiatric Medications:: Client states she has been on many medications- gabapentin (made depression worse), Wellbutrin (made anxiety worse), Buspar, Klonopin, Ritalin, Pristiq, Vraylar, Effexor, Seroquel, Lamictal, Ambien. Had TMS treatment about 1 year ago. Also has had treatment with Spravato and states it was not helpful. Age of first mental health symptoms: Client states she first took medication for mental health in her early 20's. Describe (age, circumstance, etc) any past hospitalizations: Client has been hospitalized 3 times--- 2 times after suicide attempts by overdose in 2013, and one voluntary after her divorce. Current providers for mental health treatment (counselor, psychiatrist, sample case porter, etc.): [facility] [place] for psychiatry, [facility] in [place] for counseling Fall Risk Assessment Age Age: Less than 60 Mental Status Mental Status: Willing & able to ask for assistance when needed Physical Status Physical Status: No problems Impairments Impairments: None Elimination Elimination: Continent AND independent Gait or Balance Gait or Balance: Walks independently Hx of Falls History of falls in the past 6 months: No known history Medications/Substances Psychotropics:: Antidepressants, Sedatives and Antihistamines (e.g. Benadryl) Medications/substances used within the past 24 hours or ordered to administer: 3 or more of the medications/substances listed above Total Score Total Points:: 2 RN Summary of Impressions Impressions Recommendations Impressions: Psychiatric Issues: Major depressive disorder, recurrent, severe without psychosis. Panic disorder. PTSD. Level of Care How do the client's current symptoms and functional deficits support need for this level of care?: Client was originally referred to [facility] in August 2024 by crisis due to passive thoughts of , depression and anxiety. Client started attending [facility] but did not come to a week due to poor body image and not wanting to leave her house, and had a planned week of vacation. Client states she did not intend to stop coming to [facility]. Client returns at this time to continue treatment for depression. Client reports stressors of having a 6 year old daughter with type 1 diabetes and the constant care that comes with that, a son that completed suicide 5 years ago and continued grief from that. Client admits to some chronic passive thoughts of , but denies active thoughts/ideations. IOP will promote gains and prevent further decompensation while providing social support and skills training.
--- NOTE | 2024-11-04 10:20 | BH.NA_ITS ---
Physical Data Vital Signs Pulse Rate: 85 Blood Pressure: 130/79 Height/Weight Height: 1.68 m Weight:: 63.503 kg Weight in Pounds: 140.0 lbs Current Medication Compliance Medication Compliance Do you take your medication as prescribed?: Yes Nutritional History Appetite Nutritional Instructions: Describe your appetite:: Fair Additional nutritional information:: Client states she thinks she currently has a stomach ulcer (has a history of them) and states this causes a decrease in appetite and nausea/vomiting at times. Client also reports a history of anorexia, ongoing issues with body image, and frequent food binging. Functional Assessment Sleep Pattern Describe any problems with sleeping: Client states sleep is an ongoing struggle for her and has been taking medication for many years to aid in sleep. Sensory/Communication Assess Communication Problems Do you have difficulty understanding what people are saying?: No Medical Problems/History Hematologic Conditions Hematologic: Anemia Gastrointestinal Conditions Gastrointestinal: Other (See comments) (Client states in 2022, she had a bleeding ulcer and was treated for H. Pylori. Client states in 2023, she had 4 ulcers again. Client states she thinks she has an ulcer now due to her symptoms with her stomach, and states she is going to make an appointment to see a local GI (Dr. Cardozo).) Pain Assessment Do you have acute or chronic pain?: No Surgical History Surgical History Have you had any surgeries? If so, list type and date:: Yes (bladder repair, hernia repair, tubal ligation, uterine ablation) Substance Abuse Substance Abuse Please describe substance abuse in the last 30 days:: Client reports occasional social alcohol use. Client denies tobacco use. Client states she has used some THC to attempt to help with sleep. Client states she drinks 1 cup of coffee per day. Mental Status Summary Mental Status Significant Findings/Observations on Appearance and Mood:: Client is alert and oriented x 4. Client is casually groomed with good hygiene. Client is cooperative with assessment. Client makes good eye contact. Client's voice has normal rate and volume. Client has an appropriate affect. Client makes logical associations and has normal processing. Client denies delusions/hallucinations. Client denies current SI. Suicide Assessment Suicidal Ideation Are you currently or have you been suicidal in the past?: Yes Suicidal Intentional Rating Scale (SIRS): Suicidal thoughts (past) Physician Notification Past Psychiatric History MH Treatment Hx Past Psychiatric Medications:: Client states she has been on many medications- gabapentin (made depression worse), Wellbutrin (made anxiety worse), Buspar, Klonopin, Ritalin, Pristiq, Vraylar, Effexor, Seroquel, Lamictal, Ambien. Had TMS treatment about 1 year ago. Also has had treatment with Spravato and states it was not helpful. Age of first mental health symptoms: Client states she first took medication for mental health in her early 20's. Describe (age, circumstance, etc) any past hospitalizations: Client has been hospitalized 3 times--- 2 times after suicide attempts by overdose in 2013, and one voluntary after her divorce. Current providers for mental health treatment (counselor, psychiatrist, caseworker, etc.): [facility] [place] [facility], [facility] in [place] for counseling Fall Risk Assessment Age Age: Less than 60 Mental Status Mental Status: Willing & able to ask for assistance when needed Physical Status Physical Status: No problems Impairments Impairments: None Elimination Elimination: Continent AND independent Gait or Balance Gait or Balance: Walks independently Hx of Falls History of falls in the past 6 months: No known history Medications/Substances Psychotropics:: Antidepressants, Sedatives and Antihistamines (e.g. Benadryl) Medications/substances used within the past 24 hours or ordered to administer: 3 or more of the medications/substances listed above Total Score Total Points:: 2 RN Summary of Impressions Impressions Recommendations Impressions: Psychiatric Issues: Major depressive disorder, recurrent, severe without psychosis. Panic disorder. PTSD. Level of Care How do the client's current symptoms and functional deficits support need for this level of care?: Client was originally referred to [facility] in August 2024 by crisis due to passive thoughts of , depression and anxiety. Client started attending [facility] but did not come to a week due to poor body image and not wanting to leave her house, and had a planned week of vacation. Client states she did not intend to stop coming to [facility]. Client returns at this time to continue treatment for depression. Client reports stressors of having a 6 year old daughter with type 1 diabetes and the constant care that comes with that, a son that completed suicide 5 years ago and continued grief from that. Client admits to some chronic passive thoughts of , but denies active thoughts/ideations. IOP will promote gains and prevent further decompensation while providing social support and skills training.
[2024-11-04 11:08] VITALS: BP 130/79; PULSE 85
--- NOTE | 2024-11-04 11:10 | BH.SGPN.GN ---
Behaviors/Verbalizations/Mental Status: []Pt alert and oriented, casually dressed and groomed. Eye contact good. Motor activity appropriate. Speech within normal limits. Affect congruent, mood stressed. Thoughts linear, logical, no signs of hallucinations or delusions. Client Response/Progress/Benefit: [] Pt was an active participant, engaged in activities and discussion. Pt able to identify ways they negatively contribute to crucial conversations and pt was engaged during psychoeducation of the different ways to build interpersonal effectiveness skills. Pt and peers practiced mirroring and active listening in partners. Group reviewed [employer] and used the handout to help map out how they would like a crucial conversation in their life to go. Pt identified talking to her teenage son about boundaries she is setting with him. Pt appeared to benefit from learning and practicing interpersonal effectiveness skills. Pt will continue IOP tx to reduce isolation, increase distress tolerance, and improve self-confidence. ? Narrative Note: []
--- NOTE | 2024-11-12 14:35 | BH.DS ---
Discharge Summary Demographics Date of Admission:: 11/02/24 Discharge Date: 11/12/24 Presenting Problems at Admission:: Pt is a 44y/o female who presented to [facility] IOP program for further evaluation and treatment of depression and anxiety. She initially established with the IOP program 09/01/2024 due to having passive thoughts of , depression, and anxiety. She fell out of the program due to having difficulty leaving her house due to concerns for her appearance which she is struggled with for a long time and then had a planned absence. She now represents to continue the program. Pt reports she believes on of her medications was causing increased suicidal thoughts, but those thoughts of subsequently stopped once she stopped taking the medication. Stressors include her recent work stress and her 18-year-old son dying by suicide in 2019 which she feels she has never recovered from. Her grief has recently been retriggered by the 2 best friends of her son dying in the past 18 months. She endorses sadness, worthlessness, hopelessness, guilt, initial insomnia, low energy, decreased concentration Discharge Diagnoses:: F33.2 Reason for Discharge:: Client stated she would like to discharge from program due to not having consistent babysitting for her youngest daughter over the summer break from school. Client reported she would like to return to [facility] once her kids are back in school because she will have less disruptions in being able to attend the program consistently. Treatment Progress During Treatment & Response: Limited progress noted given pt was in program for 10 days. Client struggled with attendance due to having babysitting issues. Client was engaged in group and individual sessions when she was able to attend. Issues Still to be Addressed:: Client could benefit from grief counseling, building emotion regulation skills, and building support system. Discharge Recommendations/Instructions:: Client encouraged to continue to follow up with [facility] for medication management and client continues to go to pastoral counseling. Discharge Handout
--- NOTE | 2024-11-12 14:35 | BH.DS ---
Discharge Summary Demographics Date of Admission:: 11/02/24 Discharge Date: 11/12/24 Presenting Problems at Admission:: Pt is a 44y/o female who presented to [facility] IOP program for further evaluation and treatment of depression and anxiety. She initially established with the IOP program 09/01/2024 due to having passive thoughts of , depression, and anxiety. She fell out of the program due to having difficulty leaving her house due to concerns for her appearance which she is struggled with for a long time and then had a planned absence. She now represents to continue the program. Pt reports she believes on of her medications was causing increased suicidal thoughts, but those thoughts of subsequently stopped once she stopped taking the medication. Stressors include her recent work stress and her 18-year-old son dying by suicide in 2019 which she feels she has never recovered from. Her grief has recently been retriggered by the 2 best friends of her son dying in the past 18 months. She endorses sadness, worthlessness, hopelessness, guilt, initial insomnia, low energy, decreased concentration Discharge Diagnoses:: F33.2 Reason for Discharge:: Client stated she would like to discharge from program due to not having consistent babysitting for her youngest daughter over the summer break from school. Client reported she would like to return to [facility] once her kids are back in school because she will have less disruptions in being able to attend the program consistently. Treatment Progress During Treatment & Response: Limited progress noted given pt was in program for 10 days. Client struggled with attendance due to having babysitting issues. Client was engaged in group and individual sessions when she was able to attend. Issues Still to be Addressed:: Client could benefit from grief counseling, building emotion regulation skills, and building support system. Discharge Recommendations/Instructions:: Client encouraged to continue to follow up with [facility] for medication management and client continues to go to pastoral counseling. Discharge Handout
== END 2024-11-12 09:50 | disposition home or self-care (01) ==
LOC: BHIOP 08:00
PROVIDERS: PCP Internal Medicine; Referring Provider Internal Medicine; Visit Provider Internal Medicine
DX: F33.3 Major depressive disorder, recurrent, severe with psychotic symptoms (principal)
CPT/HCPCS: H2012; H2020; S9480; 90834

== ENCOUNTER 2024-12-03 12:56 | Day surgery (SDC) | payer MEDICAID, SELFPAY ==
[2024-12-03] VITALS (8 sets, daily range): BP systolic 98–125; BP diastolic 47–89; PULSE 70–90; RESP 16–18; TEMP 36.2–36.9; O2SAT 94–100; BMI 22.4
[2024-12-03] MEDS: Lactated Ringers 1,000 ML 15 ML IV (13:18)
--- NOTE | 2024-12-03 13:52 | PRE.ANES_ITS ---
ASA Classification* ASA Classification ASA Classification: 2 Assessment & Plan Anesthesia* Anesthesia Assessment Anesthesia Assessment: Discussed sedation and/or anesthesia options, risks, benefits, and alternatives with patient/parents/legal guardian/POA. Questions invited. The patient/parents/legal guardian/POA seems to understand and agrees to proceed with anesthesia plan. Reviewed the physical assessment, medical history, allergy history and patient home medications list prior to surgery/procedure/anesthetic and documented any changes. Performed airway and anesthesia risk assessments. Anesthesia Type Anesthesia Type: MAC History Source History Obtained from:: Patient and Chart Anesthesia Focused Assessment* Temperature: 98 F Pulse Rate: 70 Blood Pressure: 112/69 Respiratory Rate: 16 Pulse Ox: 99 Oxygen Delivery Method: Room Air Airway Assessment Mouth opens: >3 cm Mallampati Score: I Teeth Condition: Intact Neck Range of motion (ROM): Full ROM Labs Anesthesia Preop lab: CBC WBC 5.3 K/mm3 (4.4-11.0) 10/23/20 09:20 10/23/20 RBC 4.45 M/mm3 (4.2-5.4) 10/23/20 09:20 10/23/20 Hgb 12.9 g/dL (12.0-15.0) 10/23/20 09:20 10/23/20 Hct 40.6 % (37-47) 10/23/20 09:20 10/23/20 Plt Count 296 K/mm3 (150-450) 10/23/20 09:20 10/23/20 CHEMISTRY Potassium 3.7 mmol/L (3.5-5.1) 01/14/17 19:00 01/14/17 Sodium 138 mmol/L (136-145) 01/14/17 19:00 01/14/17 Magnesium 1.4 mg/dL (1.8-2.4) L 03/28/14 05:45 03/28/14 BUN 13 mg/dL (7-18) 01/14/17 19:00 01/14/17 Creatinine 0.72 mg/dL (0.55-1.02) 01/14/17 19:00 01/14/17 Glucose 80 mg/dL (70-110) 01/14/17 19:00 01/14/17 TSH 1.33 uIU/mL (0.358-3.74) 10/23/20 09:20 COAG PT 12.9 SECONDS (11.7-14.9) 02/06/17 15:20 HCG, Quant 5634 mIU/mL (<9 non-preg) H 02/19/17 08:57 Urine Test Negative Negative 01/08/19 10:53 01/08/19 Pre-Assessment Diagnosis/Proposed Procedure Planned Operative Procedure(s): EGD Anesthesia History Anesthesia History - edging supervisor: Anesthesia History - edging supervisor Hx Hospitalization No 12/01/24 08:36 Any Problems With Anesthesia No 12/01/24 08:36 Cholinesterase deficiency No 12/01/24 08:36 You/Your Family Experience No 12/01/24 08:36 fever (hyperthermia) with Relationship Recent Exposure to Contagious No 12/03/24 13:19 Disease Does patient have nerve No 12/01/24 08:36 stimulator Patient instructed to have device shut off --Does patient have Pacemaker No 12/03/24 13:19 or ICD? When Was Last Pacemaker Check QUESTION #4 FULL TEXT: You/Your Family Experience fever (hyperthermia) with Anesthesia Last Oral Intake Last Oral intake: Last Oral Intake NPO since 02:00 12/03/24 13:19 Meds taken in AM with sips of water? Meds patient instructed to take am of surgery PONV PONV - edging supervisor: PONV - edging supervisor Female Yes 12/01/24 08:36 HX of Motion Sickness No 12/01/24 08:36 HX of N/V After Surgery No 12/01/24 08:36 Non-Smoker Yes 12/01/24 08:36 Duration of Surgery greater No 12/01/24 08:36 than 60 minutes Number of Risk Factors 2 12/01/24 08:36 PONV Score Moderate Risk 12/01/24 08:36 Height & Weight Height & Weight: Anesthesia: Height & Weight Height 5 ft 6 in 12/03/24 13:19 Weight: 63 kg 12/03/24 13:19 Body Mass Index (BMI) 22.4 12/03/24 13:19 Respiratory Assessment Respiratory Assessment - edging supervisor: Respiratory Tract Infection Hx - edging supervisor Hx Respiratory Tract Infection No 12/01/24 08:36 STOP Sleep Apnea STOP Sleep Apnea - edging supervisor: STOP Sleep Apnea - edging supervisor Hx Hypertension No 12/01/24 08:36 Hx Sleep Apnea No 12/01/24 08:36 CPAP BIPAP Do you snore loudly (louder No 12/01/24 08:36 than talking or can be heard Do you often feel tired/ No 12/01/24 08:36 fatigued/ sleepy during daytime? Has anyone observed you stop No 12/01/24 08:36 breathing during sleep? STOP Results Negative 12/01/24 08:36 QUESTION #5 FULL TEXT : Do you snore loudly (louder than talking or can be heard through closed doors)? Tobacco Use History Tobacco Use History - edging supervisor: Tobacco Use History - edging supervisor Tobacco Use Smoking Status Never smoker 12/01/24 08:36 Hx Tobacco Use No 12/01/24 08:36 Years Smoking Packs Smoked per Day Smoking Cessation Date was within the last 15 years Hx Smoking Cessation Date Hx Smoking Cessation Counseling Hematologic Medial History Hematologic Hx - edging supervisor: Hematologic Medical Hx - crm technical lead Hx of Blood Transfusion No 12/01/24 08:36 Hx of Transfusion in last 3 No 12/01/24 08:36 Months Date of Last Transfusion (if within last 3 months) Ever experience any problems No 12/01/24 08:36 with transfusion(s)? Specify any problems Hx of Preganancy in last 3 No 12/01/24 08:36 Months Nurse Filling Out Transfusion [facility] 12/01/24 08:36 & Questions: Date: 12/01/24 12/01/24 08:36 Time: 08:43 12/01/24 08:36 Patient unable to answer at this time (ie. confused, unrespo /Reproduction History /Reproductive History - edging supervisor: /Reproductive Hx- edging supervisor Hx Now No 12/01/24 08:36 Gestational Age (in weeks): EDC: Hx Hx Para Hx Section SAB No 12/01/24 08:36 Active Medications Active Medications: Current Medications Generic Name Dose Route Start Last Admin Trade Name Freq PRN Reason Stop Dose Admin Lactated Ringer's 1,000 mls @ 15 mls/hr 12/03/24 13:15 12/03/24 13:18 IV 15 mls/hr .Q48H BLANCHE Administration PFSH Medical History Anxiety Anemia Migraine headache Restless legs History of ulceration History of anorexia nervosa PTSD (post-traumatic stress disorder) Panic disorder Generalized anxiety disorder Major depressive disorder, recurrent severe without psychotic features Wears contact lenses Autism Depression Alcohol use History of steroid therapy Low iron Back pain Non-smoker History of echocardiogram Home Medications ?Medication ?Instructions ?Recorded ?Last Taken ?Type fluoxetine 20 mg capsule 80 mg PO QHS antidepressant 09/24/16 10/08/17 17:00 History 80 mg eszopiclone 3 mg tablet (Lunesta) 3 mg PO QHS 10/30/21 Unknown History pantoprazole 40 mg tablet,delayed 40 mg PO BID #90 tab s 11/16/24 Unknown Rx release mirtazapine 15 mg tablet (Remeron) 15 mg PO QHS Unknown History Allergy/AdvReac Type Severity Reaction Status Date / Time No Known Allergies Allergy Verified 12/01/24 08:34 Surgical History Hx of bladder repair surgery Hx of hernia repair History of salpingectomy Social History Smoking Status: Never smoker Review of Systems (Anesthesia) ROS Narrative System reviewed and no additional complaints, except as documented.
--- NOTE | 2024-12-03 13:57 | PCM.HP.STD ---
HPI - General General Date of Admission: 12/03/24 Date of Service: 12/03/24 Chief Complaint: Peptic ulcer HPI Narrative BRITTANY HERNANDEZ, is a 44 F who presents Chief Complaint: abd pain Pt with a hx of gastric ulcers duodenal ulcers previously seeing GI in [facility]. Pt wanting to establish somewhere closer. Last EGD was in Dec 2018 with ulcers in the stomach and duodenum. Pt endorses a hx of H.pylrori which was treated in the past. When she has ulcers she typically will have diffuse abd pain and bloating. Pantoprazole is helpful for these symptoms but she does not take it all the time SHe has been taking it BID the past few weeks as she has felt these symptoms. Pain is not related to PO intake. She is perimenopausal and wonder if her bloating could be related to this, pantoprazole 40 mg PO BID 90 tabs 1RF [facility] Medical History Anxiety Anemia Migraine headache Restless legs History of ulceration History of anorexia nervosa PTSD (post-traumatic stress disorder) Panic disorder Generalized anxiety disorder Major depressive disorder, recurrent severe without psychotic features Wears contact lenses Autism Depression Alcohol use History of steroid therapy Low iron Back pain Non-smoker History of echocardiogram Home Medications ?Medication ?Instructions ?Recorded ?Last Taken ?Type fluoxetine 20 mg capsule 80 mg PO QHS antidepressant 09/24/16 10/08/17 17:00 History 80 mg eszopiclone 3 mg tablet (Lunesta) 3 mg PO QHS 10/30/21 Unknown History pantoprazole 40 mg tablet,delayed 40 mg PO BID #90 tabs 11/16/24 Unknown Rx release mirtazapine 15 mg tablet (Remeron) 15 mg PO QHS 12/01/24 Unknown History Allergy/AdvReac Type Severity Reaction Status Date / Time No Known Allergies Allergy Verified 12/01/24 08:34 Surgical History Hx of bladder repair surgery Hx of hernia repair History of salpingectomy Social History Smoking Status: Never smoker ROS Constitutional Constitutional: Denies fatigue, fever(s), poor appetite, weight gain or weight loss Gastrointestinal Gastrointestinal: Denies belching, bloating, change in bowel habits, change in stool character, chewing difficulty, coffee ground emesis, constipation, cramping, diarrhea, dyspepsia, dysphagia, early satiety, excessive flatus, fecal incontinence, heartburn, hematemesis, hematochezia, hemorrhoids, loose stools, melena, nausea, odynophagia, rectal bleeding, tenesmus, vomiting or weight changes Vital Signs Vital Signs Vital Signs: 12/03/24 13:19 12/03/24 13:19 Temperature 98 F Temperature Source Temporal Pulse Rate 70 Respiratory Rate 16 Respiratory Pattern Normal Blood Pressure 112/69 Blood Pressure Mean 83 Blood Pressure Source Monitor Blood Pressure Position Semi-Fowlers Blood Pressure Location Right Arm Pulse Ox 99 Oxygen Delivery Method Room Air Weight Weight: 138 lb 14.259 oz Body Mass Index (BMI) 22.4 Physical Exam Const alert, oriented x3, no apparent distress and healthy appearing General Appearance: cooperative GI normal to inspection, nondistended, normoactive bowel sounds, soft to palpation, non-tender and non-distended Percussion: normal to percussion Rectal Exam: deferred Assessment & Plan Assessment/Plan (1) Hx of duodenal ulcer: (2) Hx of gastric ulcer: PLAN: Plan Assessment and Plan Assessment and Plan (1) Hx of gastric ulcer: Status: Acute Plan: Brittany is a 44 yo female pt here today for evaluation of abd pain and bloating. Pt has a hx of gastrointestinal ulcers and h.pylori Last EGD in Dec 2023 with gastric and small bowel ulcers. Pt feels like she may have an ulcer again as she has diffuse abd pain and bloating which is typically how ulcers present for her. She will continue pantoprazole 4 0mg BID and will be scheduled fro endoscopy to evaluation her upper GI tract. -EGD -Continue PPI BID (2) Hx of duodenal ulcer: Status: Acute Medications: New
--- NOTE | 2024-12-03 14:00 | EGD_PTH ---
PATIENT: JAMI HERNANDEZ LOC: EN U#:[id number] AGE/SX: 44/F ROOM: RE12/03/[address]: Dr. Jerry Cardozo DO : 1980 BED: DIS: 12/03/2024 SPEC #: [id number] RECD: 12/03/24 16:53 STATUS: JENNIFER FABIAN #: [id number] NOEL: 12/03/24 14:[address]: Jerry Cardozo DEPT: SURGICAL PATHOLOGY RECD BY: Sohail Sloan ENTERED: 12/06/24 11:02 SP TYPE: EGD BIOPSY VINITA DR: Dr. Jami Ocampo MD Tissues: A - Duodenum, NOS B - Gastric mucous membrane C - Esophagus, NOS Procedures: Surgery Specimen Level IV HEADER OPERATION: EGD with biopsies PRE-OP DIAGNOSIS: History of gastric ulcer TISSUE SUBMITTED: A- Duodenum biopsy, B- Gastric body biopsy, C- Distal esophagus biopsy MICROSCOPIC DIAGNOSIS A. 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 - Negative for increased intraepithelial lymphocytes. B. Gastric body, biopsy: - Oxyntic mucosa with chronic inflammation. - Negative for Helicobacter-like organisms (H&E). C. Distal esophagus, biopsy: - Columnar mucosa negative for goblet cell metaplasia. - Focal pancreatic acinar metaplasia noted. - No squamous mucosa seen. MICROSCOPIC DESCRIPTION Slides are reviewed. GROSS DESCRIPTION A. Received in fixative is one container labeled with the patient's name and designated Duodenum biopsy. The specimen consists of three irregular fragments of light rose soft tissue that measure 0.4 to 0.5 cm. The specimen is totally submitted in one cassette. B. Received in fixative is one container labeled with the patient's name and designated Gastric body biopsy. The specimen consists of one irregular fragment of light rose soft tissue that measures 0.8 cm. The specimen is totally submitted in one cassette. C. Received in fixative is one container labeled with the patient's name and designated Distal esophagus biopsy. The specimen consists of two irregular fragments of light rose soft tissue, each measuring 0.4 cm. The specimen is totally submitted in one cassette. CA 12/06/2024 CPT:15470l4
--- NOTE | 2024-12-03 14:53 | OP.PROVAT_ITS ---
12/03/2024 Jami Ocampo [address] [place] [address] Re : Upper GI endoscopy procedure for Brittany Gaviria Dear Dr. Ocampo This procedure was performed on Tuesday, December 03, 2024. My impressions and recommendations are as follows: Impressions : - Z-line irregular, 40 cm from the incisors. Biopsied. - Erythematous mucosa in the cardia and gastric fundus. Biopsied. - Erythematous duodenopathy. Biopsied. Recommendations : - Discharge patient to home. - Resume previous diet. - Continue present medications. - Await pathology results. My findings are described in the full procedure note, which is enclosed. If I can be of further assistance, please feel free to contact me at . Sincerely, Jerry Cardozo, 12/03/2024 2:53:20 PM This report has been signed electronically.
--- NOTE | 2024-12-03 14:53 | OP.EGD_ITS ---
Patient Name: Brittany Gaviria Procedure Date: 12/03/2024 2:30 PM Date of : 1980 Age: 44 Procedure: Upper GI endoscopy Indications: Epigastric abdominal pain, Functional Dyspepsia, Peptic ulcer Providers: Jerry Cardozo DO Referring MD: Jami Ocampo Medicines: Monitored Anesthesia Care Patient Profile: This is a 44 year old female. Refer to note in patient chart for documentation of history and physical. Patient has symptoms of acute epigastric abdominal pain and chronic epigastric abdominal pain. Complications: No immediate complications. Procedure: Pre-Anesthesia Assessment: - Prior to the procedure, a History and Physical was performed, and patient medications and allergies were reviewed. The patient is competent. The risks and benefits of the procedure and the sedation options and risks were discussed with the patient. All questions were answered and informed consent was obtained. Patient identification and proposed procedure were verified by the physician in the pre-procedure area. Mental Status Examination: alert and oriented. Airway Examination: normal oropharyngeal airway and neck mobility. Respiratory Examination: clear to auscultation. CV Examination: normal. Prophylactic Antibiotics: The patient does not require prophylactic antibiotics. Prior Anticoagulants: The patient has taken no anticoagulant or antiplatelet agents. ASA Grade Assessment: II - A patient with mild systemic disease. After reviewing the risks and benefits, the patient was deemed in satisfactory condition to undergo the procedure. The anesthesia plan was to use monitored anesthesia care (MAC). Immediately prior to administration of medications, the patient was re-assessed for adequacy to receive sedatives. The heart rate, respiratory rate, oxygen saturations, blood pressure, adequacy of pulmonary ventilation, and response to care were monitored throughout the procedure. The physical status of the patient was re-assessed after the procedure. After obtaining informed consent, the endoscope was passed under direct vision. Throughout the procedure, the patient's blood pressure, pulse, and oxygen saturations were monitored continuously. The Endoscope was introduced through the mouth, and advanced to the second part of duodenum. The upper GI endoscopy was accomplished without difficulty. The patient tolerated the procedure well. Scope In: 2:40:59 PM Scope Out: 2:46:23 PM Total Procedure Duration Time 0 hours 5 minutes 24 seconds Findings: The Z-line was irregular and was found 40 cm from the incisors. Biopsies were taken with a cold forceps for histology. Verification of patient identification for the specimen was done. Estimated blood loss was minimal. Patchy mildly erythematous mucosa without bleeding was found in the cardia and in the gastric fundus. Biopsies were taken with a cold forceps for histology. Biopsies were taken with a cold forceps for histology. Verification of patient identification for the specimen was done. Estimated blood loss was minimal. Biopsies were taken with a cold forceps for Helicobacter pylori testing. Verification of patient identification for the specimen was done. Estimated blood loss was minimal. Patchy mildly erythematous mucosa without active bleeding and with no stigmata of bleeding was found in the duodenal bulb. Biopsies were taken with a cold forceps for histology. Verification of patient identification for the specimen was done. Estimated blood loss was minimal. Impression: - Z-line irregular, 40 cm from the incisors. Biopsied. - Erythematous mucosa in the cardia and gastric fundus. Biopsied. - Erythematous duodenopathy. Biopsied. Recommendation: - Discharge patient to home. - Resume previous diet. - Continue present medications. - Await pathology results. Procedure Code(s): --- Professional --- 81675, Esophagogastroduodenoscopy, flexible, transoral; with biopsy, single or multiple CPT copyright 2021 [employer]. All rights reserved. The codes documented in this report are preliminary and upon ward assistant review may be revised to meet current compliance requirements. Jerry Cardozo DO 12/03/2024 2:53:20 PM This report has been signed electronically. Number of Addenda: 0 Note Initiated On: 12/03/2024 2:30 PM
--- NOTE | 2024-12-03 14:54 | PCM.POST.ANE ---
Anesthesia: Postop Eval I Current Vital Signs Temperature: 97.1 F Pulse Rate: 90 Blood Pressure: 103/64 Respiratory Rate: 16 Pulse Ox: 94 Assessment Airway patent: Yes Spontaneous unlabored respirations: Yes nausea: No Vomiting: No Anesthesia Complication: No Fluid Hydration Crystalloid volume administer (ml): 200 Total IV fluid infused: 200 Progress Note Anesthesia document: Postop Eval 1 completed: Yes
--- NOTE | 2024-12-03 17:32 | POSTOPAN2_ITS ---
Anesthesia Postop Eval I Sum Postop Eval Completion status Anesthesia document: Postop Eval 1 completed: Yes Anesthesia Postop Eval I Summary Anesthesia Postop Eval I Summary: Anesthesia Postop Eval I: Assessment Summary Airway patent Yes 12/03/24 14:54 FURNITURE [email or web address] Spontaneous unlabored Yes 12/03/24 14:54 FURNITURE [email or web address] respirations Mental status nausea No 12/03/24 14:54 FURNITURE TECHNICIAN.CSIR Vomiting No 12/03/24 14:54 FURNITURE [email or web address] Anesthesia Postop Eval I: Fluid Summary Crystalloid volume administer 200 12/03/24 14:54 FURNITURE [email or web address] (ml) Colloids volume administered ( ml) Blood Product volume administered (ml) Total IV fluid infused 200 12/03/24 14:54 FURNITURE [email or web address].CSIR Anesthesia Postop Eval I: Summary Notes Anesthesia Complication No 12/03/24 14:54 FURNITURE [email or web address] Anesthesia Complication Comment: Post-operative progress note Anesthesia: Postop Eval II Evaluation Mental status: Awake and Calm Pain Level: 0 nausea: No Vomiting: No Complications Anesthesia Complication: No
--- NOTE | 2024-12-03 17:32 | PCM.POSTANE2 ---
Anesthesia Postop Eval I Sum Postop Eval Completion status Anesthesia document: Postop Eval 1 completed: Yes Anesthesia Postop Eval I Summary Anesthesia Postop Eval I Summary: Anesthesia Postop Eval I: Assessment Summary Airway patent Yes 12/03/24 14:54 ENGINEERING [email or web address] Spontaneous unlabored Yes 12/03/24 14:54 ENGINEERING TECHNOLOGIST.CSIR respirations Mental status nausea No 12/03/24 14:54 ENGINEERING TECHNOLOGIST.CSIR Vomiting No 12/03/24 14:54 ENGINEERING [email or web address].CSIR Anesthesia Postop Eval I: Fluid Summary Crystalloid volume administer 200 12/03/24 14:54 ENGINEERING [email or web address].CSIR (ml) Colloids volume administered ( ml) Blood Product volume administered (ml) Total IV fluid infused 200 12/03/24 14:54 ENGINEERING TECHNOLOGIST.CSIR Anesthesia Postop Eval I: Summary Notes Anesthesia Complication No 12/03/24 14:54 ENGINEERING [email or web address].CSIR Anesthesia Complication Comment: Post-operative progress note Anesthesia: Postop Eval II Evaluation Mental status: Awake and Calm Pain Level: 0 nausea: No Vomiting: No Complications Anesthesia Complication: No
== END 2024-12-03 15:43 | disposition home or self-care (01) ==
LOC: EN 12:57 → AC 13:28
PROVIDERS: PCP Internal Medicine; Referring Provider Internal Medicine; Visit Provider Internal Medicine Gastroenterology
PROC: 0DJ08ZZ Inspection of Upper Intestinal Tract, Via Natural or Artificial Opening Endoscopic (ICD-10-PCS; CPT 43235; principal; 2024-12-03 13:55)
DX: K29.50 Unspecified chronic gastritis without bleeding (principal); K22.70 Barrett's esophagus without dysplasia; Z79.899 Other long term (current) drug therapy; Z87.11 Personal history of peptic ulcer disease
CPT/HCPCS: 43239; 88305; J2405

== ENCOUNTER 2024-12-22 08:00 | Outpatient (RCR) | payer MEDICAID, SELFPAY ==
--- NOTE | 2024-12-22 10:10 | BH.SGPN.GN ---
Behaviors/Verbalizations/Mental Status: [] Pt alert and oriented, casually dressed and groomed. Eye contact good. Motor activity appropriate. Speech within normal limits. Affect congruent. mood depressed. Thoughts linear, logical, no signs of hallucinations or delusions. Client Response/Progress/Benefit: [] Pt was an engaged participant AEB listening attentively to others, taking notes, and providing feedback in group discussions. Attentive during psychoeducation AEB by note taking. Pt worked along with peers in groups to define inappropriate guilt and appropriate guilt. Group worked together to provide examples of both inappropriate and appropriate guilt. Group identified a lashing out and breaking something as appropriate guilt examples. Group identified setting a boundary and needing help as having inappropriate guilt about. Pt able to connect impact inappropriate guilt can have on MH and overall functioning. Noted that it has negatively impacted her ability to be happy and move forward in healthy ways. Benefited from increased awareness of guilt and the differences between appropriate and inappropriate guilt. Pt to continue IOP tx to prevent decompensation, gain healthy coping skills, and increase communication skills. Narrative Note: []
--- NOTE | 2024-12-22 10:10 | BH.SGPN.GN ---
Behaviors/Verbalizations/Mental Status: [] Pt alert and oriented, casually dressed and groomed. Eye contact good. Motor activity appropriate. Speech within normal limits. Affect congruent, mood anxious and dysthymic. Thoughts linear, logical, no signs of hallucinations or delusions. Client Response/Progress/Benefit: [] Pt participated in group discussions. Attentive during psychoeducation on the CBT [place] (Thoughts, Behaviors, Emotions). Engaged in group discussion on how thoughts and behaviors can contribute to maintaining adverse feelings, such as depression, anxiety, and irritability. Completed worksheet in which pt identified obstacles and/or thoughts that are keeping them stuck. Shared obstacles that included; negative self-talk, shutting down, fear of failure. Pt benefited from increased awareness of the basis of CBT therapy as well as specific thoughts that are impacting pt's progress. Will continue in IOP to prevent decompensation, increase healthy coping, and improve functioning. Narrative Note: []
--- NOTE | 2024-12-22 11:10 | BH.SGPN.GN ---
Behaviors/Verbalizations/Mental Status: []Eye contact is good. Motor activity is appropriate. Appearance is casual. Speech is Appropriate. Mood is anxious. Affect is congruent. Thoughts are linear and logical. No evidence of psychosis. Client Response/Progress/Benefit: [] Pt was an engaged participant AEB listening attentively to others and providing input throughout group. Pt along with group members, identified strategies to manage inappropriate guilt. Identified a personal example of inappropriate guilt as ?feeling bad for setting boundaries with my kids.? Pt wants to work on combatting inappropriate guilt by remembering that there are different types of guilt and that feelings are not facts.? Pt seemed to benefit from learning about strategies to manage appropriate and inappropriate guilt. Pt to continue IOP tx to prevent decompensation, improve daily functioning, and reduce negative self-talk. Narrative Note: []
--- NOTE | 2024-12-22 13:39 | BH.MTP_ITS ---
Master Treatment Plan Patient Information Program Physician:: Dr. Venegas Primary Therapist:: Georgina Cartagena, [facility] Psychiatric Diagnoses Psychiatric Diagnoses:: F33.2 MDD (major depressive disorder), recurrent episode, severe Body dysmorphic disorder Insomnia Diagnosis Code(s):: F33.2 Estimated LOS Estimated LOS (in weeks):: 6 Problem/Goal #1 Problem/Goal #1 Stated Goal:: Client will reduce depressive symptoms, feelings of worthlessness, and anhedonia due to Major Depressive Disorder through Intensive Outpatient Program. Description of Barriers: Potential barriers to treatment include negative self- talk, anxious worries, skepticism towards trying healthy coping skills, and psychosocial stressors. Functional Impact: Describes mood right now as indifferent. Does further elaborate that she is ok. Does find that she finds it hard to get out of the house because she is embarrassed of her weight. Having trouble finding corrie and happiness, but unsure if part of this secondary to constantly worrying about her weight. Spends hours a day looking at herself in mirror. Formerly worked out for years but has been much less apt to do so more recently. Describes at times binge eating as a form of self harm. Describes having some fries and onion rings the other night. Describes guilt and worthlessness after doing. Had been doing a lot but trying to restrict more recently. Describes a history of having panic attacks. Objectives Objective #1: Stated Objective: Client will learn and utilize 2-3 healthy coping strategies to manage depressive symptoms. Interventions: Therapist will utilize CBT techniques to assist client with understanding the connection between thoughts, feelings and behaviors. Education will be provided on behavioral activation. Therapist will assist client in learning internal coping strategies to manage depressive symptoms, along with helping client identify triggers. Discharge Criteria: Client will have achieved this goal when can verbalize and has practiced at least 2 healthy coping strategies that successfully manage depressive symptoms. Target Date: 02/02/25 Review Date: 01/19/25 Objective #2: Stated Objective: Identify at least 2-3 negative self-talk messages used to reinforce feelings of worthlessness and replace thoughts with positive messages. Interventions: Therapist will help client identify distorted, negative beliefs about self and replace with more realistic, affirmative messages. Discharge Criteria: Client will have achieved this goal when can verbalize at least 2 negative self-talk messages and effectively replace those thoughts with affirmative messages. Target Date: 02/02/25 Review Date: 01/19/25 Problem/Goal #2 Problem/Goal #2 Stated Goal:: Client will reduce overall frequency, intensity, and duration of the anxiety so that daily functioning is not impaired. Description of Barriers: Potential barriers to treatment include negative self- talk, anxious worries, skepticism towards trying healthy coping skills, and psychosocial stressors. Functional Impact: Brittany is a 44y/o female who presented to [facility] IOP program for further evaluation and treatment of depression and anxiety. 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 Reports to having lost her son 5 years ago when he completed suicide 5 years ago when having taking Xanax. Admits to having a history of significant depressive symptoms. Describes mood right now as indifferent. Does further elaborate that she is ok. Does find that she finds it hard to get out of the house because she is embarrassed of her weight. Having trouble finding corrie and happiness, but unsure if part of this secondary to constantly worrying about her weight. Spends hours a day looking at herself in mirror. Formerly worked out for years but has been much less apt to do so more recently. Describes at times binge eating as a form of self harm. Describes having some fries and onion rings the other night. Describes guilt and worthlessness after doing. Had been doing a lot but trying to restrict more recently. Describes a history of having panic attacks. Objectives Objective #1: Stated Objective: Client will identify 2-3 anxiety producing thoughts that tend to ruminate on, and reduce this by increasing self-awareness and problem solving. Interventions: Therapist and group sessions will help client identify internal struggles client faces, including anxiety around body image, using avoidance as coping skill and other identified stressors. Discharge Criteria: Client will have achieved this objective when able to verbalize anxiety-producing thoughts and identify 2-3 ways to cope with them. Target Date: 02/02/25 Review Date: 01/19/25 Objective #2: Stated Objective: Client will learn and implement 2-3 calming skills to reduce overall anxiety and manage anxiety symptoms. Interventions: Therapist and group sessions will help client identify physiological warning signs of anxiety, increase awareness of thoughts that increase anxiety, and identify behaviors that reinforce anxious symptoms. Group and individual counseling will teach client calming skills to help manage anxious symptoms. Discharge Criteria: Client will have achieved this goal when can verbalize at least 2 calming skills and reports skills successfully help reduce anxious symptoms. Target Date: 02/02/25 Review Date: 01/19/25
--- NOTE | 2024-12-22 14:42 | BH.PSA ---
Source of Information Presenting Problems/Circumstances Problems, Referral Source, Mental Status, Client: This is an update to original Psychosocial Assessment. See initial mental health assessment dated 08/30/24. Brittany is a 44y/o female who presented to [facility] IOP program for further evaluation and treatment of depression and anxiety. 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 Reports to having lost her son 5 years ago when he completed suicide 5 years ago when having taking Xanax. Describes mood right now as indifferent. Does further elaborate that she is ok. Does find that she finds it hard to get out of the house because she is embarrassed of her weight. Having trouble finding corrie and happiness, but unsure if part of this secondary to constantly worrying about her weight. Spends hours a day looking at herself in mirror. Formerly worked out for years but has been much less apt to do so more recently. Psychiatric Presentation Psych Issues & Need for Admission Psychiatric Issues:: Psychiatric Diagnoses:: F33.2 MDD (major depressive disorder), recurrent episode, severe Body dysmorphic disorder Insomnia Diagnosis Code(s):: F33.2 Mental Status Memory Recent Memory: Fair Remote Memory: Fair Concentration Concentration: Fair Eye Contact Eye Contact: Good Speech Speech: Congruent Thought Process Thought Process: Logical Insight: Fair Judgment: Fair Behavior: Anxious Orientation Orientation: Time, Person, Place and Situation Appearance Appearance: Appropriate Mood Mood: Anxious Affect Affect: Appropriate/calm Suicide Assessment Suicidal Ideation Have you ever felt like hurting yourself?: Yes Please explain:: Pt states no suicidal thoughts in the past 6 weeks. Pt states she had suicidal thoughts several months ago, but notes it was a side effect of the medication she was on. Pt has hx of suicide attempt over 8 years ago. Were you using ETOH/drugs at the time?: No Suicidal Intentional Rating Scale (SIRS): Suicidal thoughts (past) Physician Notification Violent Behavior/Abuse History Homicidal Ideation Do you have any homicidal thoughts? If so, explain:: No Is there a known potential victim? If yes, who:: No Safety Do you ever feel threatened in your home? If yes, describe:: No Adult Social History Age 18 to Present Describe your current support system:: Parents Legal History Records Have you had any past legal charges?: No Do you have any current legal charges?: No Court Orders Have you had any past court orders for psychiatric treatment?: No Do you have a present court order for psychiatric treatment?: No Problem Checklist Current Problem Areas Problem List: Nutritional/Eating pattern changes, Depressed mood/sad, Bereavement, Anxiety, Inattention and Sleep problems Land Resource Specialist's Assessment Client's Needs What are the client's feelings about the program?: Client states she is looking forward to starting program again because she believes she is in a better place to take more from the groups and individual. What are the client's goals?: Improve mood stability and be able to manage life stressors more effectively. Diagnoses Diagnoses Diagnosis #1:: F33.2 MDD (major depressive disorder), recurrent episode, severe: Diagnosis #2:: Body dysmorphic disorder Diagnosis #3:: Insomnia Interpretive Summary Interpretive Summary Interpretive Summary: Brittany is a 44y/o female who presented to [facility] IOP program for further evaluation and treatment of depression and anxiety. 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 Reports to having lost her son 5 years ago when he completed suicide 5 years ago when having taking Xanax. Admits to having a history of significant depressive symptoms. Currently taking fluoxetine 80 mg every day, Lunesta 3 mg, and just started mirtazapine. Has had been on it for the last month, and has gained about 10 lbs since starting. Is sleeping so much better since starting medication. Has take antipsychotics in the past and felt that she did significantly worse. Also has taken lyrica and gabapentin and felt significantly more depressed. Admits to having done TMS in the past with [facility]. Feels like she has tried numerous medications in the past for sleep and mood. Doesn't feel like anything worked all that well. Has never had a sleep study but has apparently seen sleep medicine in the past. Describes mood right now as indifferent. Does further elaborate that she is ok. Does find that she finds it hard to get out of the house because she is embarrassed of her weight. Having trouble finding corrie and happiness, but unsure if part of this secondary to constantly worrying about her weight. Spends hours a day looking at herself in mirror. Formerly worked out for years but has been much less apt to do so more recently. Describes at times binge eating as a form of self harm. Describes having some fries and onion rings the other night. Describes guilt and worthlessness after doing. Had been doing a lot but trying to restrict more recently. Describes a history of having panic attacks. If sleeping pills work will sleep from 8 pm until at times 12 pm the next day. Does admit to having used them as a coping skill in the past to try and alleviate anxiety symptoms. Does describe a trauma history, specifically with the father of her children. Does feel like she has never fully process some of this previous trauma. Does admit to taking things very personal. Was arrested about 5 years ago for domestic violence with her ex. Below is a copy of previous HPI completed in October for reference: She initially established with the [facility] program 09/01/2024 due to having passive thoughts of , depression, and anxiety. She fell out of the program due to having difficulty leaving her house due to concerns for her appearance which she is struggled with for a long time and then had a planned absence. She now represents to continue the program. She reports that she has had a lot of stress recently but she feels she is handling it well but is still waiting for the other shoe to drop. Has been having mood that has been up and down and last week she felt very down. She notes she was started on pramipexole for RLS a couple of weeks ago and after she took it she became very depressed and had thoughts of suicide when stopped the medication and has not had any of those thoughts since then but is still been struggling with her mood. She reports she gets side effects and mood changes from most medicines and that even amoxicillin made her feel depressed before. Notes she is tried almost everything for mood and sleep without significant improvement. Does report she has low energy and has been having a lot of anxiety. One of her main complaints is sleep, she said when she falls asleep hydroxyzine helps her stay asleep but she has difficulty falling asleep and often feels anxious before bed. She takes Lunesta which sometimes works well and other times does not seem to work. Tried THC Gummies at bedtime without significant improvement. Was on Ambien 20 mg for many years but stopped taking this 11 years ago, she did try this again as it had been effective but she noticed it caused decreased mood so she is on Lunesta however on maximum dose. She has been on Prozac for very long time and she is unsure how helpful this is but it has been one of the medication she has been able to tolerate. Not presently having any SI/HI. No AH/VH. 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 Treatment Plan Recommendations Recommendations Guidelines Recommendations:: The patient will start the IOP in Behavioral Health at [facility] as the structure, support, education and grou therapy with ideally prevent worsening of patient's symptoms whihc could result in admission to higher level of care such as [facility] or psychiatric admission.
--- NOTE | 2024-12-22 15:22 | BH.MDN_ITS ---
Multi-Disciplinary Note Note 60-min Individual: Time Started:: 09:00 Date: 12/22/24 Purpose of session/treatment goals addressed:: Purpose of session was to gather background information, identify treatment goals, and build rapport. Eye Contact:: Good Motor Activity:: Appropriate Appearance:: Neat Speech:: Appropriate Mood:: Anxious and Dysthymic Affect:: Congruent Thoughts:: Linear, Logical and No evidence of hallucinations/delusions noted Staff Interventions:: thought challenging, CBT techniques, rapport building, strengths perspective, treatment planning and goal setting Client Response:: Client reported she has returned to [facility] for complete program since last time she had to discharge early due to childcare issues. Client stated she does feel like in certain areas she has improved with starting to have some more awareness of her negative thoughts and trying to challenge them. Client reported there are days in which she does function better at home with getting things done around her house and not isolating in her bedroom as frequently. However client admitted there are some days maybe 2 to 3 days a week in which she does nothing. Client stated while she returns to [facility] she would like to learn strategies to improve consistency in her ability to function daily. Client stated she also would like to learn strategies and skills to help her manage how to move forward from things that happened in her past. Client reports she continues to hold onto situations like her leaving a job numerous years ago and feeling upset with why she had to leave the job. Client stated she does not feel well equipped on how to manage difficult people or difficult situations and often ruminates on it. Client shared yesterday she did have some increased sadness because she is missing her son that has due to it being her other son's birthdays. Client stated her youngest son had a breakdown when thinking about missing his brother. Client stated it is heart wrenching to have to watch her youngest son go through this and she does not know what to do to support him. Client agreed she does need to go to grief counseling which is something she has been avoiding for a long time. Client states she does plan to start grief therapy after she completes [facility] because she feels like it would be helpful timing to get through the holidays and anniversary date. Client reported she has been significantly struggling with increased body image issues due to gaining 10 pounds after starting on Remeron. Client reported she is unsure if she can stay on this medication due to the side effect of feeling constantly hungry. Client stated this is unfortunate because it is the first medication a long time that has helped her sleep. Client stated unfortunately though the weight gain has triggered significant negative thoughts about her body image and are making it extremely challenging for her to leave the home. Client stated she almost did not come to [facility] today due to feeling uncomfortable in her body. Client open to exploring medication options with [facility] psychiatrist this week. Established goal for this week to start getting back into small workouts so that she moves her body and feels healthier. Therapist did caution will be important for client to stick to only working out a few days a week so that does not become obsessive. Discussed strategies to help with follow through. Risks/Concerns:: Denies current suicidal ideation, plan, or intention to date. Client does report passive thoughts of occasionally, but stated she is not actively suicidal. Progress Toward Goals/Plan:: No progress observed given first day in program. Client would like to learn strategies to manage and move on from past situations. Client also would like to learn skills/strategies to manage emotions and moods more effectively. Client to continue IOP to increase consistent use of healthy coping, challenge distortions, and prevent decompensation. Time Stopped:: 10:00
--- NOTE | 2024-12-23 09:00 | BH.SGPN.GN ---
Behaviors/Verbalizations/Mental Status: [] Eye contact is good. Motor activity is appropriate. Appearance is casual. Speech is Appropriate. Mood is depressed and anxious. Affect is congruent. Thoughts are linear and logical. No evidence of psychosis. Reviewed daily check in sheet and no reports of suicidal ideations or intent. Client Response/Progress/Benefit: [] Pt was an active participant in group discussions. Attentive. Did well to identify 2 mental health wins including using opposite action to challenge herself to come back to IOP tx. Expressed some desire to blow it off but reminded herself of the support she has received in the past and the importance of working on her mental health. Stated feeling tired this morning. Additional win noted as getting both her kids off to school in time despite some pushback from her daughter. Able to regulate her emotions throughout the morning as well. Current stressor identified as ongoing struggles with negative self-talk. Responded well to group support. Benefited from group support, encouragement, and feedback. Will continue in IOP to prevent decompensation, promote mood stability, and increase confidence. Narrative Note: []
--- NOTE | 2024-12-23 10:00 | BH.SGPN.GN ---
Behaviors/Verbalizations/Mental Status: []Pt alert and oriented, neatly dressed and groomed. Eye contact good. Motor activity appropriate. Speech within normal limits. Affect congruent, mood depressed. Thoughts linear, logical, no signs of hallucinations or delusions. Client Response/Progress/Benefit: [] Pt was an active participant in group discussion and experiential activity. Attentive during psychoeducation on resilience and provided input throughout. Participated in interactive discussion with peers on the definition of resilience and where it comes from. Group identified that resiliency can be impacted by; past experiences, upbringing, and personality traits. Able to relate experiential activity of group juggle to topics of resilience. Worked with peers in small group in which they identified factors that contribute to resilience and did well providing ideas. Benefited from increased awareness of resilience and the factors that contribute to building resilience. Will continue in IOP tx to prevent decompensation, gain skills for self-confidence, and reduce self-sabotaging behaviors. Narrative Note: []
--- NOTE | 2024-12-23 11:00 | BH.SGPN.GN ---
Behaviors/Verbalizations/Mental Status: [] Eye contact is good. Motor activity is appropriate. Appearance is casual. Speech is Appropriate. Mood is anxious. Affect is congruent. Thoughts are linear and logical. No evidence of psychosis. Client Response/Progress/Benefit: [] Pt responded well to session AEB completing the resilience worksheet provided. Pt actively participated in the discussion and worked cooperatively with group to identify strategies to enhance each of the components discussed. Pt was able to identify resiliency traits they already possess as well as areas related to resilience to focus on in the future which included move towards goals and be more decisive. Pt seemed to benefit from discussing strategies for improving personal resilience and identifying resilience traits Pt already possesses. Will continue IOP tx to prevent decompensation, stabilize mood, and to increase healthy coping Narrative Note: []
--- NOTE | 2024-12-24 08:00 | PCM.BH.PSYEV ---
Intake Vital Signs 12/03/24 13:19 12/24/24 08:00 12/24/24 12:04 Height 5 ft 6 in 5 ft 6 in 5 ft 6.14 in Weight: 148 lb BP 120/78 Pulse 70 Intake Visit Reasons: IOP Admission Allergies No Known Allergies Allergy (Verified 12/24/24 11:52) Medications ?Medication ?Instructions ?Recorded ?Confirmed ?Type fluoxetine 20 mg capsule 80 mg PO QHS antidepressant 09/24/16 12/24/24 History eszopiclone 3 mg tablet (Lunesta) 3 mg PO QHS 10/30/21 12/24/24 History pantoprazole 40 mg tablet,delayed 40 mg PO BID #90 tabs 11/16/24 12/24/24 Rx release mirtazapine 15 mg tablet (Remeron) 15 mg PO QHS 12/01/24 12/24/24 History PFSH () Medical History (Updated 12/27/24 @ 15:[address] Josemanuel Venegas, DO) Insomnia Anxiety Anemia Migraine headache Restless legs History of ulceration History of anorexia nervosa PTSD (post-traumatic stress disorder) Panic disorder Generalized anxiety disorder Major depressive disorder, recurrent severe without psychotic features Wears contact lenses Autism Depression Alcohol use History of steroid therapy Low iron Back pain Non-smoker History of echocardiogram Surgical History Hx of bladder repair surgery Hx of hernia repair History of salpingectomy Social History Smoking Status: Never smoker HPI () History of Present Illness History provided by: patient Chief complaint: Anxious HPI: Brittany is a 44y/o female who presented to [facility] IOP program for further evaluation and treatment of depression and anxiety. 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 Reports to having lost her son 5 years ago when he completed suicide 5 years ago when having taking Xanax. Admits to having a history of significant depressive symptoms. Currently taking fluoxetine 80 mg every day, Lunesta 3 mg, and just started mirtazapine. Has had been on it for the last month, and has gained about 10 lbs since starting. Is sleeping so much better since starting medication. Has take antipsychotics in the past and felt that she did significantly worse. Also has taken lyrica and gabapentin and felt significantly more depressed. Admits to having done TMS in the past with [facility] Psychiatry. Feels like she has tried numerous medications in the past for sleep and mood. Doesn't feel like anything worked all that well. Has never had a sleep study but has apparently seen sleep medicine in the past. Describes mood right now as indifferent. Does further elaborate that she is ok. Does find that she finds it hard to get out of the house because she is embarrassed of her weight. Having trouble finding corrie and happiness, but unsure if part of this secondary to constantly worrying about her weight. Spends hours a day looking at herself in mirror. Formerly worked out for years but has been much less apt to do so more recently. Describes at times binge eating as a form of self harm. Describes having some fries and onion rings the other night. Describes guilt and worthlessness after doing. Had been doing a lot but trying to restrict more recently. Describes a history of having panic attacks. If sleeping pills work will sleep from 8 pm until at times 12 pm the next day. Does admit to having used them as a coping skill in the past to try and alleviate anxiety symptoms. Does describe a trauma history, specifically with the father of her children. Does feel like she has never fully process some of this previous trauma. Does admit to taking things very personal. Was arrested about 5 years ago for domestic violence with her ex. Below is a copy of previous HPI completed in October for reference: She initially established with the [facility] program 09/01/2024 due to having passive thoughts of , depression, and anxiety. She fell out of the program due to having difficulty leaving her house due to concerns for her appearance which she is struggled with for a long time and then had a planned absence. She now represents to continue the program. She reports that she has had a lot of stress recently but she feels she is handling it well but is still waiting for the other shoe to drop. Has been having mood that has been up and down and last week she felt very down. She notes she was started on pramipexole for RLS a couple of weeks ago and after she took it she became very depressed and had thoughts of suicide when stopped the medication and has not had any of those thoughts since then but is still been struggling with her mood. She reports she gets side effects and mood changes from most medicines and that even amoxicillin made her feel depressed before. Notes she is tried almost everything for mood and sleep without significant improvement. Does report she has low energy and has been having a lot of anxiety. One of her main complaints is sleep, she said when she falls asleep hydroxyzine helps her stay asleep but she has difficulty falling asleep and often feels anxious before bed. She takes Lunesta which sometimes works well and other times does not seem to work. Tried THC Gummies at bedtime without significant improvement. Was on Ambien 20 mg for many years but stopped taking this 11 years ago, she did try this again as it had been effective but she noticed it caused decreased mood so she is on Lunesta however on maximum dose. She has been on Prozac for very long time and she is unsure how helpful this is but it has been one of the medication she has been able to tolerate. Not presently having any SI/HI. No AH/VH. 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 Of note patient was placed on BuSpar 10 mg twice daily by the previous physician she is on IOP which she is no longer taking this, she is unsure why manage she is unsure if she has had an adverse effect or if it just did not work, discussed that it was still a low dose and there was room for titration if this needed to be trialed agai Developmental History Developmental History: Siblings - 2 younger brothers Born/Raised - [place], [place] Education - G.E.D. quit school Living Situation - lives with father, 3 kids, and mom and father Legal Issues - denies Employment - office work, was working [employer] in [employer] - 4 children, 26, 17, 7, son at 18; not currently worried Psychiatric History Previous psychiatric treatment history: Yes (x2 admission around 2014) Previous psychiatric diagnoses: Annorexia; Body Dysmorphia, PTSD, MDD, Anxiety Previous psychiatric treatment programs: residential treatment ([facility] in [place] for Annorexia in 2016) and intensive outpatient prog (Started this program x2) Family Psychiatric History: Son - completed suicide Mental illness: Father with history of alcoholism and son completed suicide -Substance Use: Father with history of alcoholism, brother w/ hx of drug use -General medical conditions: Daughter with type 1 diabetes, mother with A-fib and arthritis Suicidal Ideation Current: No Past: Yes History of suicide attempt: Yes (2014 - following divorce; overdose attempt) Suicide Risk Assessment Suicide risk factors: previous suicide attempts and depression Medication Trials Previous psychiatric medication trials: numerous psychiatric med trials in the past; reports to doing much worse with antipsychotics in the past Current/Previous Provider Psychiatrist: Joe Suero in [place]; 1-2 years Therapist: no current therapist Other -Alcohol: Socially -Drugs: Has used THC edibles sometimes for sleep but no other substance use -Rehab: No substance rehab -Tobacco use: Denies Review of systems () Constitutional Reports: change in weight; Denies: fever(s), chills or fatigue Eyes Denies: change in vision or blurry vision Ears, Nose, Mouth, Throat Denies: throat pain, neck pain or change in hearing Cardiovascular Denies: chest pain, palpitations or dyspnea Respiratory Denies: dyspnea, cough or wheezing Gastrointestinal Denies: abdominal pain, nausea, vomiting, diarrhea or constipation Genitourinary Denies: dysuria or urinary frequency Musculoskeletal Denies: back pain, neck pain, joint pain or muscle weakness Integumentary/Breast Denies: rash or new lesions Neurological Denies: headache(s), dizziness or confusion Endocrine Denies: fatigue or excessive sweating Hematologic/Lymphatic Denies: easy bruising or easy bleeding Allergic/Immunologic Denies: wheezing Exam () Mental Status Exam- Psych () Appearance casually dressed and adequately groomed Attitude engaged Activity/Motor Behavior restless Speech regular rate and regular volume Mood anxious Affect restricted Thought Process linear and logical Thought Content no delusions (although near delusional thought regarding body image) and no hallucinations Suicidal Ideation none Homicidal Ideation none Attention intact Concentration intact Sensorium/Orientation awake and alert Memory/Cognition intact Insight fair Judgement fair Assessment & Plan () Assessment & Plan (1) MDD (major depressive disorder), recurrent episode, severe: Plan: - doing largely well with the use of mirtazapine; specifically sleeping well however has some mild weight gain. Discussed at length and will trial reducing dose to continue to provide benefit and reduce side effect burden - Patient advised of the risk benefits and possible side effects of mirtazapine including but not limited to sedation, weight gain, GI side effects and dry mouth. ?Patient agreeable to trial medication at the time. - - The patient will start the IOP in Behavioral Health at [facility] as the structure, support, education and grou therapy with ideally prevent worsening of patient's symptoms whihc could result in admission to higher level of care such as [facility] or psychiatric admission. I have reasonable expectation that the patient will make timely and significant improvement in the presenting acute symptoms as a result of the program and eventually be discharged to a lower level of care. (2) Body dysmorphic disorder: Plan: - significant anxiety associated with body image including avoiding going in public due to small weight gain (3) Insomnia: Plan: - see above Charges/Coding Multi Select Codes Behavior Health Behavior Health EST Pt E/M: 00685 Est Pt Level IV
--- NOTE | 2024-12-24 08:00 | BH.DR.ITP ---
Initial Treatment Plan Patient Information Visit Information: ADMISSION DATE: 12/24/2024 EXPECTED LOS: 4-6 weeks Problems/Symptoms Problem #1:: depression Symptom:: low mood, thoughts of , poor sleep, fluctuations in appetite, low energy Problem #2:: Body dysmorphia Symptom:: body image concerns, significant social anxiety, disordered eating
--- NOTE | 2024-12-24 09:00 | BH.SGPN.GN ---
Behaviors/Verbalizations/Mental Status: [] Pt alert and oriented, neatly dressed and groomed. Eye contact good. Motor activity appropriate. Speech within normal limits. Affect congruent, mood hopeful and depressed. Thoughts linear, logical, no signs of hallucinations or delusions. Reviewed pt?s symptom tracker, no risk for suicidal ideation, plan, or intent 12/24/24. Client Response/Progress/Benefit: []Pt was an active participant in group discussions. Attentive. Able to identify mental health wins including ?I really want to start getting into healthy habits again and I am trying to be less rigid and kinder with myself.? ?Pt's stressor today is ?my negative mindset is just so bad and it makes me lack motivation.? The group offered pt suggests to manage this stressor and emotional support which pt reported was helpful. Pt is feeling ?content.? this morning. Pt receptive to feedback from peers. Benefited from group support, encouragement, and feedback. Progress noted. Will continue IOP tx to prevent decompensation, increase self-esteem, and improve mood stability. ? Narrative Note: []
--- NOTE | 2024-12-24 10:10 | BH.SGPN.GN ---
Behaviors/Verbalizations/Mental Status: []Eye contact is good. Motor activity is appropriate. Appearance is casual. Speech is Appropriate. Mood is depressed. Affect is congruent. Thoughts are linear and logical. No evidence of psychosis. Client Response/Progress/Benefit: []Pt was an active participant in group discussion. Engaged and attentive during psychoeducation and interactive discussion on coping skills, why people use unhealthy coping skills, how to replace unhealthy coping skills, and internal vs external coping skills. Attentive as peers came up with list of unhealthy coping skills. Pt reported personally, they tend to either isolate, sleep, or shut down. Group discussed the effects of maladaptive coping skills on mental health. Benefited from increased understanding of unhealthy coping skills and the need for developing healthy internal and external coping skills. Actively participated during experiential group activity and was able to related this activity to group topic. Will continue in IOP to promote healthy thinking patterns, apply healthy coping skills, and promote mood stability. Narrative Note: []
--- NOTE | 2024-12-24 11:40 | BH.NA_ITS ---
Physical Data Vital Signs Pulse Rate: 70 Blood Pressure: 120/78 Height/Weight Height: 1.68 m Weight:: 67.132 kg Weight in Pounds: 148.0 lbs Current Medication Compliance Medication Compliance Do you take your medication as prescribed?: Yes Functional Assessment Sleep Pattern Describe any problems with sleeping: Client states Michael has been helping with sleep and she has been sleeping about 8 hours per night. Medical Problems/History Hematologic Conditions Hematologic: Anemia (history of) Gastrointestinal Conditions Gastrointestinal: Other (See comments) (hx of gastric ulcers, recent endoscopy showed gastric inflammation - on protonix) Surgical History Surgical History Have you had any surgeries? If so, list type and date:: Yes (bladder repair, hernia repair, tubal ligation, uterine ablation) Substance Abuse Substance Abuse Please describe substance abuse in the last 30 days:: Client reports occasional social alcohol use. Client denies tobacco use. Client denies substance use, states she briefly tried THC gummies in the past to help her sleep. Client drinks 1 cup of coffee per day. Mental Status Summary Mental Status Significant Findings/Observations on Appearance and Mood:: Client is alert and oriented x 4. Client is casually groomed with good hygiene. Client is cooperative with assessment. Client makes good eye contact. Client's voice has normal rate and volume. Client has appropriate affect. Client makes logical associations and has normal processing. Client denies delusions/hallucinations. Client denies current SI. Suicide Assessment Suicidal Ideation Are you currently or have you been suicidal in the past?: Yes Suicidal Intentional Rating Scale (SIRS): Suicidal thoughts (past) Physician Notification Past Psychiatric History MH Treatment Hx Past Psychiatric Medications:: gabapentin (made depression worse), Wellbutrin (made anxiety worse), Buspar, Klonopin, Ritalin, Pristiq, Vraylar, Effexor, Seroquel, Lamictal, Vistaril Age of first mental health symptoms: Client states she first took medication in her early 20's for mental health. Describe (age, circumstance, etc) any past hospitalizations: Client states she has been hospitalized 3 times- 2 times after suicide attempts in 2013 and one voluntarily after her divorce. Current providers for mental health treatment (counselor, psychiatrist, rehabilitation case coordinator, etc.): [facility] in [place] for psychiatry, [facility] in [place] for counseling Fall Risk Assessment Age Age: Less than 60 Mental Status Mental Status: Willing & able to ask for assistance when needed Physical Status Physical Status: No problems Impairments Impairments: None Elimination Elimination: Continent AND independent Gait or Balance Gait or Balance: Walks independently Hx of Falls History of falls in the past 6 months: No known history Medications/Substances Psychotropics:: Antidepressants and Sedatives Medications/substances used within the past 24 hours or ordered to administer: 1-2 of the medications/substances listed above Total Score Total Points:: 1 RN Summary of Impressions Level of Care How do the client's current symptoms and functional deficits support need for this level of care?: Client was in IOP in August 2024 and October 2024, and returns at this time with continued stressors. Client reports continued anxiety around working. Client states she plans to go back to grief counseling regarding her son that completed suicide about 5 years ago and states grieving his loss is s till a stressor. Client states her type 1 diabetic daughter got sick a few days into the school year and had to miss school and states these stressors continue to make her anxious. Client admits to chronic passive thoughts of , but denies active thoughts/ideations. IOP will promote gains and prevent further decompensation while providing social support and skills training. Nutritional Screen Height/Weight Height: 1.68 m Weight:: 67.132 kg Weight in Pounds: 148.0 lbs Nutrition Screening Normal Weight: 63.503 kg Normal/Usual Weight in Pounds: 140.0 lbs Have you lost weight without trying: No Have you been eating poorly because of a decreased appetite: No Recently been on tube feeds, TPN, or have any nutritional access device in joey ce: No Have any large open wounds or wounds that are not healing: No Calculated Weight Change: [id number] Change in weight Score: 1 MST Screening Tool Score: 1
[2024-12-24 12:04] VITALS: BP 120/78; PULSE 70
== END 2024-12-26 23:59 ==
LOC: BHIOP 08:00
PROVIDERS: PCP Internal Medicine; Referring Provider Student in an Organized Health Care Education/Training Program; Visit Provider Student in an Organized Health Care Education/Training Program
DX: F33.2 Major depressive disorder, recurrent severe without psychotic features (principal); F45.22 Body dysmorphic disorder; G47.00 Insomnia, unspecified
CPT/HCPCS: H2012; H2020; S9480; 90837

== ENCOUNTER 2024-12-28 07:16 | Outpatient (RCR) | payer MEDICAID, SELFPAY ==
--- NOTE | 2024-12-29 09:05 | BH.SGPN.GN ---
Behaviors/Verbalizations/Mental Status: [] Eye contact is good. Motor activity is appropriate. Appearance is casual. Speech is Appropriate. Mood is depressed. Affect is congruent. Thoughts are linear and logical. No evidence of psychosis. Reviewed daily check in sheet and no reports of suicidal ideations or intent. Client Response/Progress/Benefit: [] Pt was an active participant in group discussions. Attentive. Daily symptom tracker notes 06/30 for depression. ? I actually felt like a normal person on Friday? Reports minimal mental health struggles on that day. She completed responsibilities, exercised, and overall functioning well with no isolation or crying spells. She was unable to identify any internal or external skills which contributes to the benefits of that day. Group provided possible suggestions. Slight decompensation since stating ? I get in my own way? noting that negative automatic thoughts significant impact emotions and behaviors. Progress noted. Benefited from group support, encouragement, and feedback. Will continue in IOP to maintain safety, prevent decompensation, and increase healthy coping. Narrative Note: []
--- NOTE | 2024-12-29 10:10 | BH.SGPN.GN ---
Behaviors/Verbalizations/Mental Status: [] Client alert and oriented, casually dressed and groomed. Eye contact good. Motor activity appropriate. Speech within normal limits. Affect congruent, mood depressed. Thoughts linear, logical, no signs of hallucinations or delusions. Client Response/Progress/Benefit: [] Client responded well to session AEB contributing to discussion, taking notes, and listening attentively to others. Group discussed the benefits of managed anger and anger as a secondary emotion. Client participated in anger iceberg discussion. Group reported outward personal signs of anger as lashing out verbally, physical fights, destruction of property, self-harm, and self-sabotage. Group Identified underlying emotions that contribute to anger including being dismissed, rejection, assumptions, being lied too, and micromanaging. Appeared to benefit from increased knowledge of the underlying emotions that impact anger and increased self-awareness of the internal and external consequences of anger. Client will continue IOP program to stabilize mood, reduce isolation and avoidance, and prevent decompensation. Narrative Note: []
--- NOTE | 2024-12-29 11:10 | BH.SGPN.GN ---
Behaviors/Verbalizations/Mental Status: [] client alert and oriented, casually dressed and groomed. Eye contact good. Motor activity appropriate. Speech within normal limits. Affect congruent, mood anxious. Thoughts linear, logical, no signs of hallucinations or delusions. Client Response/Progress/Benefit: [] Client was an engaged participant throughout group AEB client providing input throughout discussion. Client contributed to the continued discussion of how people express anger as well as the underlying emotions of anger. Client participated in group activity that highlighted strategies to cope with anger. Group brainstormed healthy coping skills to help prevent anger and cope with it in the moment which included: mindfulness, deep breathing, journaling, going outside, and music. Client stated would like to practice challenging her perspective to manage anger response. Client appeared to benefit from brainstorming with the group potential strategies to manage anger in healthy ways. Recommended continued IOP to improve distress tolerance, improve view of self, and prevent decompensation.
--- NOTE | 2024-12-31 09:05 | BH.SGPN.GN ---
Behaviors/Verbalizations/Mental Status: [] Eye contact is good. Motor activity is appropriate. Appearance is casual. Speech is Appropriate. Mood is dysthymic. Affect is congruent. Thoughts are linear and logical. No evidence of psychosis. Reviewed daily check in sheet and no reports of suicidal ideations or intent. Client Response/Progress/Benefit: [] Pt was an active participant in group discussions. Attentive. Daily symptom tracker notes 2/5 for depression and 1/5 of agitation. Able to identify mental health wins and healthy habits. ? I?m staying consistent with healthy habits?. She shared a depressive episode on Friday. ? I was really depressed?. Began to focus and ruminate on personal appearance which led to isolation, low motivation, and sleeping to escape. Despite this she was still able to follow through with goals by utilizing opposite action and reframing. Progress noted. Benefited from group support, encouragement, and feedback. Will continue in IOP to prevent decompensation, increase healthy coping strategies, and improve functioning. Narrative Note: []
--- NOTE | 2024-12-31 11:10 | BH.SGPN.GN ---
Behaviors/Verbalizations/Mental Status: [] Eye contact is good. Motor activity is appropriate. Appearance is casual. Speech is Appropriate. Mood is euthymic. Affect is congruent. Thoughts are linear and logical. No evidence of psychosis. Client Response/Progress/Benefit: [] Pt was an active participant and responded well to session AEB input and examples during group activity. Group discussed and practiced methods of reframing cognitive distortions. Client participated in identifying cognitive distortions when examples were provided. Client discussed in group the different strategies to overcome the distortions. Client identified cognitive distortion they used most often and made plan to identify and challenge thoughts that contribute to it as homework over the next couple of days. Will continue tx to further promote mood stability, improve distress tolerance skill application, maintain safety, and prevent decompensation. Narrative Note: []
--- NOTE | 2024-12-31 14:19 | BH.MDN_ITS ---
Multi-Disciplinary Note Note 60-min Individual: Time Started:: 10:10 Date: 12/31/24 Purpose of session/treatment goals addressed:: Purpose of session was to address goals 1 and 2 from [facility]. Eye Contact:: Good Motor Activity:: Restless Appearance:: Neat Speech:: Appropriate Mood:: Euthymic and Dysthymic Affect:: Congruent Thoughts:: Linear, Logical and No evidence of hallucinations/delusions noted Staff Interventions:: thought challenging, CBT techniques, strengths perspective, goal setting and taught coping skills Client Response:: Client reported she has been doing better with keeping to her goal of working out in small increments several times a week. Client stated she feels like it is been helpful to move her body more consistently. Client stated she did have some thoughts about feeling good to be back in control or something. Client noted she recognizes it is important to be mindful of this kind of thinking so she does not retrigger previous behavior of excessive exercise or disordered eating. Client reported she is also been doing better with managing her binge eating which she recognizes intense hunger is connected to her medication of Remeron. Client noted she spoke to the [facility] psychiatrist last week and agreed to continue the Remeron because it is helping her sleep but stated if it continues to make her gain weight she will likely not stay on that med. 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 Client stated she often just feels uncomfortable in her body and checks her problem areas well over 20 times a day. Client stated she almost did not come to [facility] this morning because she felt like an area of her face was looking bad. Client reported the other times she leaves her house is to be out of take her son to activities but notes she feels incredibly uncomfortable and thinks that people are thinking negative things about her body. Client stated she feels like there is expectation for her to be small because she has always been thinner. Client noted there has been moments in which her mom has made negative comments about her body throughout her life and other family members in her life have made comments when she has gained weight. Client stated this is the first time she has really been open to talking about her negative view of her body and therapy and is open to learning how to manage it better because she wants to be able to enjoy leaving her house. Client stated she is also continuing to struggle with holding onto intense anger from her previous relationships with her and her daughters father. Client reported she did go off on her ex- last week because she was triggered by something that reminded her of something he did in the past. Client recognizes holding on and harboring this anger is only hurting herself because it does not change anything from her past nor does it change their behavior. Client reported she also has been harboring anger and frustration towards her previous workplace numerous years ago. Client states she believes she is more a anger towards this workplace because it was around the time that her son and has a lot of anger towards the way that this workplace treated her during that time. Client open to trying a cathartic letter writing activity in which she will write a letter to the workplace to express her feelings but not send the letter. Client stated she feels like it could be helpful for her to have opportunity to express how she is feeling and processed some of the thoughts, feelings and themes. Risks/Concerns:: Denies suicidal ideation, plan, or intention to date. future oriented. Progress Toward Goals/Plan:: Progress noted with client being consistent with IOP attendance despite reporting significant body dysmorphia thoughts that are preventing her from leaving the house to do other things. Client reports working on following through with her goals set last session. Client continues to report improvement in home functioning, but continued issues with leaving the house due to her body image. Plan is to help client find a therapist that specializes in body dysmorphia treatment. Client to continue IOP to help decrease negative thoughts, challenge distortions, and prevent decompensation. Time Stopped:: 11:10
--- NOTE | 2025-01-05 09:00 | BH.SGPN.GN ---
Behaviors/Verbalizations/Mental Status: [] Eye contact is good. Motor activity is appropriate. Appearance is casual. Speech is Appropriate. Mood is content. Affect is congruent. Thoughts are linear and logical. No evidence of psychosis. Reviewed daily check in sheet and pt reports 0/5 for suicidal thoughts and 0/5 for intent. Client Response/Progress/Benefit: [] Pt participated when prompted. Attentive. Daily symptom tracker notes 0/5 for anxiety, 0/5 for irritability and 1/5 for depression. Emotion for today is content. Mental health wins reported to be using opposite action to complete several cleaning tasks around the house. Additional win noted as continuing to make progress in challenging herself to live in the raygoza and not engage in all or nothing thinking. Current stressor noted as struggling to find a product she ran out of at the house. Progress noted per pt report. Benefited from group support, encouragement, and feedback. Will continue in IOP to prevent decompensation, improve mood stability, and increase healthy coping. Narrative Note: []
--- NOTE | 2025-01-05 10:10 | BH.SGPN.GN ---
Behaviors/Verbalizations/Mental Status: []Pt alert and oriented, casually dressed and groomed. Eye contact good. Motor activity appropriate. Speech within normal limits. Affect constricted, mood dysthymic. Thoughts linear, logical, no signs of hallucinations or delusions. Client Response/Progress/Benefit: []Pt was an active participant in group discussion and activity. Attentive during psychoeducation. Along with peers, pt was able to identify barriers to taking action in their life. Identified several symptoms and stressors that pt feels are holding them back from progress. Pt able to identify how these things have negatively impacted progress. Benefited from increased self-awareness of obstacles. Pt will continue IOP to improve consistent use of healthy coping skills, improve distress tolerance, and prevent decompensation.
--- NOTE | 2025-01-05 15:00 | BH.MDN ---
Multi-Disciplinary Note Note 60-min Individual: Time Started:: 11:20 Date: 01/05/25 Purpose of session/treatment goals addressed:: Purpose of session was to address goals 1 and 2 from [facility]. Eye Contact:: Good Motor Activity:: Appropriate Appearance:: Casual Speech:: Appropriate Mood:: Anxious and Dysthymic Affect:: Congruent Thoughts:: Linear, Logical and No evidence of hallucinations/delusions noted Staff Interventions:: thought challenging, CBT techniques, strengths perspective and goal setting Client Response:: client reported feeling exhausted today. Client stated she has started taking hormone replacements last Friday and has noticed with one of the hormones she becomes more exhausted throughout the day. Client stated she believes her estrogen is improving her energy and motivation. Client stated since Friday she has had decreased desire to lay in bed and has been accomplishing more around the house. Client stated she is continuing to struggle with leaving the house due to her view of her body image. Client reported she noticed on Friday she worked out for 90 minutes and started having thoughts of wanting to work out even more the next day. Client stated she caught her thinking patterns and was able to challenge herself to have a rest day instead of working out to the extreme. Client reported she doesn't want to get back to being obsessive with her workouts like she used to in the past. Client stated she has also been doing better with managing desire to binge eat. Client reported she is trying to focus on being more balanced with her eating and working out. Client stated she has a hard time looking in the mirror because will say self-deprecating comments about the way her face looks. Client reported she has been trying to focus on doing things that are healthy for her body, but recognizes she has a lot of work to do in order to see herself in a better light. Client stated she is open to having referrals for therapist that can help with her body dysmorphia. Client reported she did not do homework from last session of writing cathartic letter towards her previous workplace. Client stated she is wanting to do this assignment because she knows it will likely be helpful to manage the anger she has been holding on to. Client reported she will continue work on practicing the skills because she wants to get to a place in which she can see herself as deserving of good things. Client stated her fear of the unknown and fear things will always go bad has resulted in her pushing good people away. Risks/Concerns:: Denies suicidal ideation, plan, or intention to date. future oriented. children are protective factors. Progress Toward Goals/Plan:: Progress noted with client consistently attending sessions, engaging in both group and individual sessions, and showing increased utilization of skills outside of treatment. Client has been more open minded to challenging her perspective. Client noted she is doing more behavior changes when she has awareness of self-sabotage. Client could benefit from continuing IOP to improve view of self, challenge distortions, and prevent decompensation. Time Stopped:: 12:30
--- NOTE | 2025-01-06 09:05 | BH.SGPN.GN ---
Behaviors/Verbalizations/Mental Status: [] Pt alert and oriented, casually dressed and groomed. Eye contact good. Motor activity appropriate. Speech within normal limits. Affect congruent, mood anxious. Thoughts linear, logical, no signs of hallucinations or delusions. Reviewed pt?s symptom tracker, no reported Si, plan, or intention. Client Response/Progress/Benefit: []Pt was an active participant in group discussions. Attentive. Pt stated that her mental health positive as setting a boundary with her daughter last night about limiting access to a nilsa. Pt reported she sees this as a big win because she struggles with setting boundaries with her children. Pt reported additional mental health win as not beating herself up this morning when having a argument with her daughter. Pt stated typically an argument with her children would result in pt crying and beating self up. Pt reported her stressor as feeling extremely tired for the last two days. Pt seemed to benefit from support from peers. Will continue IOP services to improve emotion regulation, challenge negative thoughts, and prevent deceompensation.
--- NOTE | 2025-01-06 10:05 | BH.SGPN.GN ---
Behaviors/Verbalizations/Mental Status: [] Eye contact is good. Motor activity is appropriate. Appearance is casual. Speech is Appropriate. Mood is content. Affect is congruent. Thoughts are linear and logical. No evidence of psychosis. Client Response/Progress/Benefit: [] Pt engaged participant AEB listening to others, engaging in activity, and providing feedback throughout. Attentive during psychoeducation and provided insight into obstacles that impede mental wellness. Pt shared with group current mental health reality and desired mental health reality. Identified barriers to desired reality which included difficulties with communication, negative self-talk, and isolating. Benefited from taking look at current mental health state and obstacles for progress. Pt to continue in IOP tx to prevent decompensation, stabilize mood, and improve functioning. Narrative Note: []
--- NOTE | 2025-01-06 11:10 | BH.SGPN.GN ---
Behaviors/Verbalizations/Mental Status: [] Eye contact is good. Motor activity is appropriate. Appearance is casual. Speech is Appropriate. Mood is anxious. Affect is congruent. Thoughts are linear and logical. No evidence of psychosis. Client Response/Progress/Benefit: [] Pt was an engaged participant in group discussion and activity. Worked with group to identify strategies to help overcome barriers and obstacles to desired reality. Group developed strategies for the common barriers. Identified personal barriers to desired reality which included Self-doubt, fear, all or nothing thinking, and avoidance. Was able to identify a skill to implement immediately to address absolute thinking. Pt seemed to benefit from increased repertoire of healthy coping skills/strategies to overcome common barriers to moving forward. Will continue in IOP to prevent decompensation, stabilize emotions, increase healthy coping, and improve functioning. Narrative Note: []
--- NOTE | 2025-01-07 09:05 | BH.SGPN.GN ---
Behaviors/Verbalizations/Mental Status: [] Eye contact is good. Motor activity is appropriate. Appearance is casual. Speech is Appropriate. Mood is depressed and irritable. Affect is congruent. Thoughts are linear and logical. No evidence of psychosis. Reviewed daily check in sheet and no reports of suicidal ideations or intent. Client Response/Progress/Benefit: [] Pt was an active participant in group discussions. Attentive. Pt shared the she is tired this morning. Reports struggles with sleep last evening. Situational stressors this morning created urge to not attend IOP and isolate however able to work through. I guess I'm adulting today. Irritable and annoyed. She is also anxious about attending a celebration of life for a friend of her son. Concern this will trigger grief reaction, depression, and regression. Family has encouraged her not to attend however states I have to go. Group suggested developing strategies to help with transition into and out of the event. Encouraged spending time with support after to process or distract. Progress noted. Benefited from group support, encouragment, and feedback. Will continue in IOP to maintain safety, stabilize mood, improve functioning, and increase healthy coping. Narrative Note: [] Behaviors/Verbalizations/Mental Status: [] Eye contact is good. Motor activity is appropriate. Appearance is casual. Speech is Appropriate. Mood is depressed and irritable. Affect is congruent. Thoughts are linear and logical. No evidence of psychosis. Reviewed daily check in sheet and no reports of suicidal ideations or intent. Client Response/Progress/Benefit: [] Pt was an active participant in group discussions. Attentive. Pt shared the she is tired this morning. Reports struggles with sleep last evening. Situational stressors this morning created urge to not attend IOP and isolate however able to work through. I guess I'm adulting today. Irritable and annoyed. She is also anxious about attending a celebration of life for a friend of her son. Concern this will trigger grief reaction, depression, and regression. Family has encouraged her not to attend however states I have to go. Group suggested developing strategies to help with transition into and out of the event. Encouraged spending time with support after to process or distract. Progress noted. Benefited from group support, encouragment, and feedback. Will continue in IOP to maintain safety, stabilize mood, improve functioning, and increase healthy coping. Narrative Note: []
--- NOTE | 2025-01-07 10:15 | BH.SGPN.GN ---
Behaviors/Verbalizations/Mental Status: []Pt alert and oriented, neatly dressed and groomed. Eye contact good. Motor activity appropriate. Speech within normal limits. Affect congruent, mood euthymic. Thoughts linear, logical, no signs of hallucinations or delusions. Client Response/Progress/Benefit: [] Pt was attentive during psychoeducation and participated in group activity. Group discussed what influences a person?s perspective and how perspective can positively or negatively impact mental health treatment. Group identified several factors that can influence perspective which include; mood, current stressors, sleep, health, hunger, and several others.?Pt appeared to benefit from increasing awareness of different perspectives and how they can affect mental health. Pt noted that their perspective today is ?determined because I am tired of living this way.? Pt will continue IOP tx improve self-confidence, increase distress tolerance, and promote mood stability. Narrative Note: []
--- NOTE | 2025-01-07 11:10 | BH.SGPN.GN ---
Behaviors/Verbalizations/Mental Status: []Pt alert and oriented, casually dressed and groomed. Eye contact good. Motor activity appropriate. Speech within normal limits. Affect congruent, mood dysthymic. Thoughts linear, logical, no signs of hallucinations or delusions. Client Response/Progress/Benefit: [] Pt was attentive and contributed to group discussion. Pt worked with group to identify strategies that can help with challenging negative perspective. Pt stated they can practice dialectical thinking and focusing on being more patient with herself. Benefited from identifying strategies that can help with improving perspective and identifying one strategy to focus on to improve current perspective. Pt will continue IOP tx to increase application of healthy coping skills, improve distress tolerance skills, and improve daily functioning.
--- NOTE | 2025-01-10 09:05 | BH.SGPN.GN ---
Behaviors/Verbalizations/Mental Status: [] Eye contact is good. Motor activity is appropriate. Appearance is casual. Speech is Appropriate. Mood is euthymic. Affect is full. Thoughts are linear and logical. No evidence of psychosis. Reviewed daily check in sheet and no reports of suicidal ideations or intent. Client Response/Progress/Benefit: [] Pt was an active participant in group discussions on mindfulness. Attentive. Daily symptom tracker notes no significant distress however reports mood and functioning are worse. Shared that she was struggling this morning with motivation however was able to reframe/challenge thoughts to motivation herself to get here. Improvement in opposite-action and following through with responsibilities and tasks which has lead to improved mental health. Shared going to an event this weekend which was triggering and how this impacted her. Insight that she often finds difficulty with absolute thinking. Its either all of nothing I can't find an be ok with the middle. Shared how this impacts her daily functioning, relationships, and self-esteem. Peers worked to develop a SMART goal which is in the raygoza or middle which was helpful. Progress noted. Benefited from group support, encouragement, and feedback. Will continue in IOP to prevent decompensation, improve functioning, and increase healthy coping. Narrative Note: []
--- NOTE | 2025-01-10 10:10 | BH.SGPN.GN ---
Behaviors/Verbalizations/Mental Status: []Eye contact is fair. Motor activity is appropriate. Appearance is casual. Speech is Appropriate. Mood is anxious and dysthymic. Affect is constricted. Thoughts are linear and logical. No evidence of psychosis. Client Response/Progress/Benefit: []Pt participated in the group discussions AEB providing input and taking notes. Attentive during psychoeducation on SMART Goal Setting. Pt worked with group to identify common barriers to goal setting which included; mental health struggles, energy/motivation, limited support, change to routine, lack or resources, having unrealistic goals, and our internal expectations. Group also identified benefits of goals, which included: promotes a sense of accomplishment, it challenges oneself, can boast confidence, and can cause positive change/growth. Benefited from increased awareness of mental health benefits of goals as well as psychoeducation on SMART goal criteria. Will continue in IOP to increase consistent use of healthy coping skills, improve confidence, and prevent decompensation.
--- NOTE | 2025-01-10 11:10 | BH.SGPN.GN ---
Behaviors/Verbalizations/Mental Status: []Pt alert and oriented. Appearance is casual, hygiene is appropriate. Eye contact good. Motor activity appropriate. Speech within normal limits. Affect is euthymic. Mood is congruent. Thoughts linear, logical, no signs of hallucinations or delusions. Client Response/Progress/Benefit: [] Pt was engaged during discussion and experiential activity. Completed the worksheet challenging them to develop a personal SMART goal. Pt chose a SMART goal to write in her journal each night 30 minutes before bed instead of watching TV. Believes this goal will benefit her by potentially improving sleep and getting her emotions out instead of dwelling. Identified obstacles such as forgetting, lack of discipline, and making excuses. Brainstormed strategies to help her manage potential barriers. Benefited from this group by developing a short-term SMART goal related to mental health. Will continue IOP to promote use of healthy coping skills, improve self-confidence, and reduce negative self-talk. Narrative Note: []
--- NOTE | 2025-01-13 09:05 | BH.SGPN.GN ---
Behaviors/Verbalizations/Mental Status: [] Eye contact is good. Motor activity is appropriate. Appearance is casual. Speech is Appropriate. Mood is euthymic. Affect is full. Thoughts are linear and logical. No evidence of psychosis. Reviewed daily check in sheet and no reports of suicidal ideations or intent. Client Response/Progress/Benefit: [] Pt was an active participant in group discussions. Attentive. ?Something is clicking?. She reports improved mental health, increased energy, and increased motivation. She is following through with goals and coping skills on consistent basis. She shared several examples of healthy habits and increased confidence in managing emotions. Progress noted. Benefited from group support, encouragement, and feedback. Will continue in IOP to prevent decompensation, stabilize mood, and improve functioning. Narrative Note: []
--- NOTE | 2025-01-13 10:10 | BH.SGPN.GN ---
Behaviors/Verbalizations/Mental Status: [] Eye contact is fair. Motor activity is appropriate. Appearance is casual. Speech is Appropriate. Mood is dysthymic. Affect is congruent. Thoughts are linear and logical. No evidence of psychosis. Client Response/Progress/Benefit: [] Pt was engaged and participating throughout, providing input and taking notes. Attentive during psychoeducation on anxiety and cognitive triangle. Participated in an interactive discussion on defining anxiety and identifying cognitive and physiological symptoms of anxiety. The group discussed helpful vs harmful anxiety. Pt identified their physical/physiological signs of anxiety which includes: rapid heart rate and sweating. Benefited from increased awareness and insight on anxiety and its impact. Will continue in IOP to prevent decompensation, improve distress tolerance, and improve view of self.
--- NOTE | 2025-01-13 11:15 | BH.SGPN.GN ---
Behaviors/Verbalizations/Mental Status: []Pt alert and oriented, casually dressed and groomed. Eye contact good. Motor activity appropriate. Speech within normal limits. Affect congruent, mood tired Thoughts linear, logical, no signs of hallucinations or delusions. Client Response/Progress/Benefit: [] Pt was an active participant AEB pt providing input and listening attentively to peers. Attentive during psychoeducation on mindfulness coping skills and their impact on reducing anxiety and improving overall mental health wellness. Group was able to identify self-soothing and mind-based coping skills which included: 5-senses, meditation, deep breathing, TIPP, thought challenging, categories, and progressive muscle relaxation. Pt would like to work on using guided meditation and journaling more regularly to reduce anxiety. Appeared to benefit from increasing repertoire of anxiety reduction skills. Pt will continue IOP to increase distress tolerance skills, improve self-compassion, and reduce negative self-talk. Narrative Note: []
--- NOTE | 2025-01-14 15:21 | BH.TPR ---
Treatment Plan Review Demographics Date of Admission:: 12/22/24 Date of Treatment Plan Review:: 01/14/25 Admitting Diagnoses:: F33.2 MDD (major depressive disorder), recurrent episode, severe Body dysmorphic disorder Insomnia Current Diagnoses:: F33.2 MDD (major depressive disorder), recurrent episode, severe Body dysmorphic disorder Insomnia Patient Status Patient's Response to Treatment:: Pt consistently attending IOP sessions which is improvement from previous admission to [facility] in the summer. Pt engages in group and individual therapy sessions. Pt has been more open minded recently to challenging her perspective. Status of Current Problems and Symptoms: Ongoing problems. Pt has recently started hormone replacements with positive impact on her energy and motivation when she is taking estrogen. Pt stated when she has to take progesterone she notices negative impact on her mood and energy. Pt reported she is working with her OBGYN to figure out the correct hormone combination. Pt has reported overall improvement in her daily functioning with getting more done around the house and not wanting to lay around all day. Pt continues to struggle with body image issues which impacts pt wanting to leave her house. Pt is somewhat open to referrals to a therapist that specializes in body dysmorphia disorders. Per DSM 5 cross-cutting scores at review overall symptoms have decreased by 30%. Progress Problem #1: Problem Name:: Depression Status of Goals:: Obj 1 - progress noted, ongoing work encouraged. Pt is able to identify several healthy coping skills like opposite action, breathing, exercise, and habit stacking. Pt does struggle at times with utilizing skills consistently. Obj 2 - not met. Pt has awareness of her negative self-deprecating thought patterns, but reports significant struggle with challenging her negative thoughts. Pt has been more open to challenging some of her negative thoughts. She particularly struggles with challenging any thoughts connected to how she views her body. Per DSM 5 cross-cutting scale pt has reported a 33% decrease in depression. Team Recommendations:: Team recommends pt continue current goals and objectives to allow more time for consistent reduction in symptoms. Team also recommends therapist to review referrals for individual counselors that specialize in body dysmorphia. Problem #2: Problem Name:: Anxiety Status of Goals:: Obj 1 - not met. Pt can identify anxious thoughts that she ruminates on but struggles with challenging or reframing these thoughts. A significant portion of her anxious thoughts are connected to worries about how others see her body. It has been recommended and will be reinforced for pt to seek counseling with a specialist in body dysmorphia. Obj 2 progress noted, ongoing work encouraged. Pt is able to identify several healthy calming skills like belly breathing, grounding, and guided meditation. Pt does struggle at times with utilizing skills consistently. - not met. Per DSM 5 cross-cutting scale pt has reported a 63% decrease in anxiety. Team Recommendations:: Team recommends pt continue current goals and objectives to allow more time for consistent reduction in symptoms. Team also recommends therapist to review referrals for individual counselors that specialize in body dysmorphia and continue to encourage client to seek grief therapy.
--- NOTE | 2025-01-19 09:00 | BH.SGPN.GN ---
Behaviors/Verbalizations/Mental Status: [] Pt alert and oriented, neatly dressed and groomed. Eye contact good. Motor activity appropriate. Speech within normal limits. Affect flat, mood tearful. Thoughts linear, logical, no signs of hallucinations or delusions. Reviewed pt?s symptom tracker, no risk for suicidal ideation, plan, and intent 01/19/25. Client Response/Progress/Benefit: []Pt was an active participant in group discussions. Attentive. Per patients daily symptom tracker, pt indicates a 1/5 for depression and a 0/5 for anxiety, with 5 being severe. Pt reported her mental health wins as showing up to group despite having the day off, and reading a book that she has been enjoying. The client stated that the book has been helping her to gain more insight and feels as if it has gotten some concepts that she had struggled with in the past to click. She was tearful as she reported her stressors being figuring out her medication, and stepping on the scale this morning. Pt reports that a previous medication made her gain weight, making stepping on the scale a more stressful experience. Pt was supportive and attentive to others in the group. Pt seemed to benefit from support from peers. Will continue IOP tx to promote healthy coping mechanisms, reduce negative thinking patterns, and gain self-confidence.
--- NOTE | 2025-01-19 10:10 | BH.SGPN.GN ---
Behaviors/Verbalizations/Mental Status: [] Client alert and oriented, casually dressed and groomed. Eye contact good. Motor activity appropriate. Speech within normal limits. Affect congruent, mood euthymic. Thoughts linear, logical, no signs of hallucinations or delusions. Client Response/Progress/Benefit: [] Client responded well to session AEB taking notes throughout and listening attentively to others. Client was attentive throughout group activity identifying famous individuals and how they overcame failure to be successful. Client helped group identify how fear of failure can impact mental health and relationships. Client participated in experiential activity, working with group members to problem solve. Appeared to benefit from increased knowledge of fear of failure. Will continue IOP tx to reduce distorted thinking patterns, and increase emotional regulation. Narrative Note: []
--- NOTE | 2025-01-19 11:10 | BH.SGPN.GN ---
Behaviors/Verbalizations/Mental Status: [] Client alert and oriented, casually dressed and groomed. Eye contact good. Motor activity appropriate. Speech within normal limits. Affect constricted, mood euthymic. Thoughts linear, logical, no signs of hallucinations or delusions. Client Response/Progress/Benefit: [] Client responded well to session, engaged in the experiential activity and attentive throughout group processing. Client reported fear of failure has kept client from happiness. Client completed fear of failure worksheet and was able to identify thoughts and behaviors that reinforce personal fear of failure including comparing self to others. Client participated in small group discussion regarding strategies to overcome fear of failure. Identified wanting to work on positive mindset. Appeared to benefit from increased knowledge of strategies to combat fear of failure and gaining self-awareness. Client will continue IOP tx to promote gains in reduced depressive symptoms and to reduce anxiety and avoidance. Narrative Note: []
--- NOTE | 2025-01-20 09:05 | BH.SGPN.GN ---
Behaviors/Verbalizations/Mental Status: [] Eye contact is good. Motor activity is appropriate. Appearance is casual. Speech is Appropriate. Mood is euthymic. Affect is full. Thoughts are linear and logical. No evidence of psychosis. Reviewed daily check in sheet and no reports of suicidal ideations or intent. Client Response/Progress/Benefit: [] Pt was an active participant in group discussions. Attentive. Limited distress noted on symptom tracker. Able to identify mental health wins and healthy habits. Feeling hopeful and motivated. Shared several examples of utilizing reframing, mindfulness, and acceptance which occured last night. Shared some insights that in the past she was hoping someone or some medication would save me. It's all up to me. I'm done waiting for someone to make me happy. Primary stressor is related to medication changes. She stopped her Remeron, Estrogen, and Progesterone at the suggestion on her PCP. Has an appointment today to advocate for some type of intervention. Despite these changes she remains assertive and optimistic. Progress noted. Benefited from group support, encouragement, and feedback. Will continue in IOP to prevent decompensation, stabilize moood, and improve funcitoning. Narrative Note: []
--- NOTE | 2025-01-20 10:15 | BH.SGPN.GN ---
Behaviors/Verbalizations/Mental Status: [] Eye contact is good. Motor activity is appropriate. Appearance is casual. Speech is Appropriate. Mood is dysthymic. Affect is congruent. Thoughts are linear and logical. No evidence of psychosis. Client Response/Progress/Benefit: [] Client engaged during group session as evidenced by contributions during group discussions, appearing to listen to others, and taking notes. Client engaged in discussion about barriers that keep people from having difficult conversations. Group identified potential reasons individuals avoid difficult conversations which included; feeling uncomfortable, reaction of others, fear, and avoiding conflict. Group also identified benefits to having crucial conversations. Pt identified things they do that impact their communication as avoidance and shutting down. Client seemed to benefit from increased awareness and education about importance of having difficult conversations and recognizing the impact of avoiding such conversations. Client to continue IOP to prevent decompensation, increase healthy coping, and improve functioning. Narrative Note: []
--- NOTE | 2025-01-20 15:49 | BH.MDN ---
Multi-Disciplinary Note Note 45-min Individual: Time Started:: 11:15 Date: 01/20/25 Purpose of session/treatment goals addressed:: Purpose of session was to address goals 1 and 2 from MTP. Eye Contact:: Good Motor Activity:: Appropriate Appearance:: Neat Speech:: Appropriate Mood:: Euthymic Affect:: Full Thoughts:: Linear, Logical and No evidence of hallucinations/delusions noted Staff Interventions:: thought challenging, motivational interviewing, CBT techniques, strengths perspective and goal setting Client Response:: Client reported she is feeling hopeful and positive today. Client reported the last few days she has been working on reframing her negative and anxious thoughts which she noted has helped her stay motivated and decreased self-deprecating thoughts. Client stated recently tried mindfulness to be more present and in the moment. Client reported she is somewhat worried about how her mental health will do after being taking off her Remeron, Estrogen, and Progesterone as recommended by her PCP. Client stated she was having issues with the Progesterone causing extreme exhaustion every time she took this hormone. Client reported she wanted to just be able to take Estrogen because she found positive benefits to this with her mood and energy, however she was told she has to take Progesterone in combination with Estrogen. Client reported she has an appointment today with her OBGYN to advocate for a hysterectomy because she believes her hormones directly impact her mental health. Client agreed she does tend to look for a medication or some situation to make her better and she needs to accept that she still could struggle with her mental health even after getting a hysterectomy. Therapist gently challenged client the importance of still applying skills consistently and the combination of skill use and hormone correction could be significantly beneficial. Client agreed this would be important for continued wellness. Client stated focus will be on continuing to focus on thought challenge and using mindfulness more consistently. Risks/Concerns:: Denies suicidal ideation, plan, or intention to date. future oriented. Progress Toward Goals/Plan:: Progress noted with client reporting improved mood, improved motivation, and starting to practice healthy coping skills such as thought reframing, mindfulness, and radical acceptance. Client reporting feeling more hopeful and optimistic about her future. Client noted progress with improved daily functioning, decreased time spent in her bed, and improved ability to get out of her house. Client does plan to meet with OBGYN to discuss options in regards to her hormonal issues that client believes has been negatively contributing to her mental health. Plan is for client to continue IOP to promote healthy coping, improve view of self, and prevent decompensation. Time Stopped:: 12:00
--- NOTE | 2025-01-21 07:47 | PCM.BH.PN ---
Intake Vital Signs 12/24/24 12:04 01/21/25 07:47 Height 5 ft 6.14 in 5 ft 6.14 in Weight: 148 lb BP 120/78 Pulse 70 Intake Visit Reasons: Follow-up Allergies No Known Allergies Allergy (Verified 12/24/24 11:52) Medications ?Medication ?Instructions ?Recorded ?Confirmed ?Type fluoxetine 20 mg capsule 80 mg PO QHS antidepressant 09/24/16 01/20/25 History eszopiclone 3 mg tablet (Lunesta) 3 mg PO QHS 10/30/21 01/20/25 History estradiol 0.05 mg-norethindrone 1 patch transdermal 2XW 01/20/25 01/20/25 History 0.14 mg/24 hr semiwkly transderm patch (CombiPatch) hydroxyzine HCl 50 mg tablet 50 mg PO BID 01/20/25 01/20/25 History pantoprazole 40 mg tablet,delayed 40 mg PO BID PRN 01/20/25 History release prazosin 1 mg capsule 1 mg PO QHS #30 caps 01/21/25 Rx HPI () History of Present Illness History provided by: patient Chief complaint: Anxious HPI: Brittany is a 44y/o female who presents for follow up evaluation. Patient reports that she has been kind of up and down. Recently stopped taking mirtazapine as it was making her too sedated with the progesterone she was prescribed from an outside provider. Had been taking estrogen which she felt she was feeling much better on however her UNION REPRESENTATIVE did not wish for her to take estrogen without progesterone given risk factors so has since discontinued. She has now only been taking fluoxetine and hydroxyzine in recent past and is now struggling with sleep. Is supposed to black pickler an estrogen and progresterone patch starting today so is optimistic this may help with her overall mood and sleep. Is still using Lunesta but still struggling to get to sleep. Has been waking up in the middle of the night having crazy dreams. Elaborates that she is having dreams that are vivid or strange in content. Has essentially asked her Boiler Fireman to do a hysterectomy so she could take estrogen without progesterone if possible due to her feeling so much better when taking just estrogen. Does verbalize some frustration with having gained weight with Remeron however does not seem to perseverate on this symptom. Review of systems () Constitutional Reports: change in weight (Has stabilized) and change in sleep pattern; Denies: fever(s), chills or fatigue Eyes Denies: change in vision or blurry vision Ears, Nose, Mouth, Throat Denies: throat pain, neck pain or change in hearing Cardiovascular Denies: chest pain, palpitations or dyspnea Respiratory Denies: dyspnea, cough or wheezing Gastrointestinal Denies: abdominal pain, nausea, vomiting, diarrhea or constipation Genitourinary Denies: dysuria or urinary frequency Musculoskeletal Denies: back pain, neck pain, joint pain or muscle weakness Integumentary/Breast Denies: rash or new lesions Neurological Denies: headache(s), dizziness or confusion Endocrine Denies: fatigue or excessive sweating Hematologic/Lymphatic Denies: easy bruising or easy bleeding Allergic/Immunologic Denies: wheezing Exam Mental Status Exam- Psych () Appearance casually dressed and adequately groomed Attitude engaged Activity/Motor Behavior restless Speech regular rate and regular volume Mood anxious (Somewhat up-and-down) Affect restricted Thought Process linear and logical Thought Content no delusions and no hallucinations Suicidal Ideation none Homicidal Ideation none Attention intact Concentration intact Sensorium/Orientation awake and alert Memory/Cognition intact Insight fair Judgement fair Assessment & Plan () Assessment & Plan (1) MDD (major depressive disorder), recurrent episode, severe: Plan: - Has discontinued mirtazapine secondary to weight gain - Continue fluoxetine and hydroxyzine as before ? Will monitor closely and try to improve sleep quality which should improve mood (2) Body dysmorphic disorder: Plan: - Does not perseverate on weight gain or physical image at this time but does remain a significant concern (3) Insomnia: Plan: - Will add prazosin 0.1 mg at bedtime to assist with sleep without a significant risk of weight gain ? Encouraged to monitor blood pressure and advised of risk of dizziness, lightheadedness, syncopal episodes, or falls Charges/Coding Multi Select Codes Behavior Health Behavior Health EST Pt E/M: 45945 Est Pt Level IV
--- NOTE | 2025-01-21 09:05 | BH.SGPN.GN ---
Behaviors/Verbalizations/Mental Status: [] Eye contact is good. Motor activity is appropriate. Appearance is casual. Speech is Appropriate. Mood is depressed. Affect is congruent. Thoughts are linear and logical. No evidence of psychosis. Reviewed daily check in sheet and no reports of suicidal ideations or intent. Client Response/Progress/Benefit: [] Pt participated when prompted. Distracted. Tearful. Daily symptom tracker notes 4/5 for depression. ? All the positives are gone?. She is struggling this AM with significant negative thoughts about herself. ? I?m really emotional?. She identified ? comments? from her mother as primary trigger. Anger at herself for allowing her mother?s words to have such power over her. Ruminating extensively on several past events in her life which reinforce that she is a failure. No progress noted. Peers attempted to reframe, challenge, and point out progress which was beneficial. Will continue in IOP to prevent decompensation, stabilize mood, increase healthy coping, and improve functioning. Narrative Note: []
--- NOTE | 2025-01-21 10:10 | BH.SGPN.GN ---
Behaviors/Verbalizations/Mental Status: [] Client alert and oriented, casual appearance. Eye contact good. Motor activity appropriate. Speech within normal limits. Affect congruent, mood dysthymic. Thoughts linear, logical, no signs of hallucinations or delusions. Client Response/Progress/Benefit: [] Pt receptive to session AEB contributing to small group discussion, as well as listening attentively to others, and taking notes. Worked with group to brainstorm the positive and negative aspects of stress on physical and mental health. Group did well to identify the benefits of stress as well as the impact of distress on performance, relationships, and mental health. Pt identified their personal top stressors as: no current career, relationships, and opinions from others. Patient stated when stress is overwhelming they shut down and engagement in more negative thinking. Pt seemed to benefit from increased awareness of current stressors and impact stress has on mental health. Pt will continue IOP tx to improve distress tolerance, challenge distorted thoughts, and utilize healthy coping skills on a more consistent basis.
--- NOTE | 2025-01-24 09:00 | BH.SGPN.GN ---
Behaviors/Verbalizations/Mental Status: [] Pt alert and oriented, Neatly dressed and groomed. Eye contact good. Motor activity appropriate. Speech within normal limits. Affect congruent, mood calm. Thoughts linear, logical, no signs of hallucinations or delusions. Reviewed pt?s symptom tracker, no risk for suicidal ideation, plan, and intent 01/24/25. Client Response/Progress/Benefit: []Pt was an active participant in group discussions. Attentive. Per patients daily symptom tracker, pt indicates a 1/5 for depression and a 0/5 for anxiety, with 5 being severe. Pt's mental health positives were going on a hike with her friend, and playing football with her son. She reported being anxious about hiking as it was hot and she felt insecure about wearing shorts. She was able to go on the hike and enjoy herself, despite feeling anxious. She also reported playing football with her son as another positive as it allowed her to connect with him. Pt also shared that her son told her that he was proud of her after going on a run, making her feel proud of herself. Pt's stressor is sleep, as she states that she did not sleep well. Pt seemed to benefit from support from peers. Will continue IOP tx to promote healthy coping mechanisms, reduce negative thinking patterns, and gain self-confidence.
--- NOTE | 2025-01-24 10:15 | BH.SGPN.GN ---
Behaviors/Verbalizations/Mental Status: []Pt alert and oriented, casually dressed and groomed. Eye contact good. Motor activity appropriate. Speech within normal limits. Mood is anxious. Affect is congruent. Thoughts linear, logical, no signs of hallucinations or delusions. Client Response/Progress/Benefit: [] Pt was an active?participant in group discussions and experiential activity. Worked with peers to identify benefits of healthy relationships which included; support, shared experiences, laughter, understanding, and perspective challenge. Group identified factors that lead to unhealthy relationships which included; low self-esteem, trauma-bonding, poor communication, and manipulation/toxic behaviors. Pt reported wanting to please others at her own expense has contributed to unhealthy relationships. Benefited from increased insight and awareness of benefits of healthy relationships and factors that contribute to unhealthy relationships. Will continue IOP to increase self-worth, improve perspective, and prevent decompensation.
--- NOTE | 2025-01-24 11:15 | BH.SGPN.GN ---
Behaviors/Verbalizations/Mental Status: []Pt alert and oriented, casually dressed and groomed. Eye contact good. Motor activity appropriate. Speech within normal limits. Mood engaged. Affect congruent. Thoughts linear, logical, no signs of hallucinations or delusions. Client Response/Progress/Benefit: [] Pt responded well to session, engaged and taking notes throughout. Worked with group to connect components of the experiential activity with characteristics of healthy and unhealthy relationships. Attentive during psychoeducation about characteristics of healthy, unhealthy, and abusive relationships. Pt identified wanting to work on ?not waiting to communicate what is bother me.? Appeared to benefit from identifying current healthy relationship attributes. Pt to continue IOP tx to promote mood stability, increase distress tolerance, and improve self-confidence. Narrative Note: []
== END 2025-01-25 23:59 ==
LOC: BHIOP 07:16
PROVIDERS: PCP Internal Medicine; Referring Provider Student in an Organized Health Care Education/Training Program; Visit Provider Student in an Organized Health Care Education/Training Program
DX: F33.2 Major depressive disorder, recurrent severe without psychotic features (principal); F45.22 Body dysmorphic disorder; G47.00 Insomnia, unspecified
CPT/HCPCS: H2012; H2020; S9480; 90834; 90837

== ENCOUNTER 2025-01-26 08:04 | Outpatient (RCR) | payer MEDICAID, SELFPAY ==
--- NOTE | 2025-01-26 10:10 | BH.SGPN.GN ---
Behaviors/Verbalizations/Mental Status: []Eye contact is good. Motor activity is appropriate. Appearance is casual. Speech is Appropriate. Mood is anxious. Affect is congruent. Thoughts are linear and logical. No evidence of psychosis. Client Response/Progress/Benefit: [] Pt receptive to session AEB listening attentively to others and taking notes. Pt attentive and contributed throughout psychoeducation on the cognitive triangle and maintenance cycles. Pt engaged during group discussion reviewing the impact of daily activities and behaviors in either reinforcing unhealthy maintenance cycles and depression or assisting in reducing symptoms (?down? vs ?up? activities). Pt participated during interactive discussion in which pt identified their own common up activities (reading positive things and spending time with her kids) and down activities (isolating and sleeping to avoid). Appeared to benefit from increased awareness of current behaviors and impact these have on mental health. Will continue IOP to increase self-compassion, reduce negative thinking patterns, and improve daily functioning. ?? Narrative Note: []
--- NOTE | 2025-01-26 11:10 | BH.SGPN.GN ---
Behaviors/Verbalizations/Mental Status: []Pt alert and oriented, casually dressed and groomed. Eye contact fair. Motor activity appropriate. Speech within normal limits. Affect congruent, mood anxious. Thoughts linear, logical, no signs of hallucinations or delusions. Client Response/Progress/Benefit: [] Pt responded well to session, attentive and engaged in group discussions and activity. Actively engaged in continued discussion about up activities and down activities. Active participant as group discussed values and the benefits that knowing one's values can have on one's mental health. Client shared they would like to focus on strengthening their value of family by being more intentional of connecting with each of her kids. Benefited from increased awareness of their up activities and how incorporating their values into behavioral activation goals can positively impact mental health. Will continue in IOP to improve confidence, challenge negative thoughts, and prevent decompensation.
--- NOTE | 2025-01-26 19:01 | BH.MDN ---
Multi-Disciplinary Note Note 45-min Individual: Time Started:: 09:10 Date: 01/26/25 Purpose of session/treatment goals addressed:: Purpose of session was to address goals 1 and 2 from MTP. Eye Contact:: Fair Motor Activity:: Appropriate Appearance:: Casual Speech:: Appropriate Mood:: Euthymic Affect:: Congruent Thoughts:: Linear, Logical and No evidence of hallucinations/delusions noted Staff Interventions:: thought challenging, CBT techniques, strengths perspective and goal setting Client Response:: Client reported she's been struggling with reaching out to her ex Waqar which often leads to her feeling worse about herself. Client gave example that she will reach out about something she is struggling with about their daughter and he will respond in a way that client reports makes her feel worse. Client reported this is something he would do throughout their relationship. Client admitted she can't think of too many times in which Waqar responses to her made her feel better. Client agreed reaching out to him is a form of sabotage because it often results in his responses reinforcing negative self-talk. Client reported she does want to decrease frequency in how often she communicates with Waqar. Worked with therapist to discuss strategies. Client client reported she is proud that she's been consistently working out for the last month. Client stated she feels like she's been able to maintain a healthy workout plan and hasn't found herself going overboard. Client stated due to feeling like she is on the right path with watching what she eats and working out she does not feel like she needs to go to eating disorder treatment at this time. Client stated she feels like instead she's going to start with grief counseling because it's something that she's been putting off and knows will be beneficial for her period client noted overall her anxiety is improved and her depression is improved as well. Client stated she has been more compassionate towards herself which she believes is what's contributing to improved mood and overall improved functioning. 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 Client stated she feels like she can do this on my own in regards to working through her body image issues. Progress Toward Goals/Plan:: Pt reports that her anxiety and depression have been improving recently. Pt states she is doing better with daily functioning at home and with helping her kids get to games and extracurriculars. Pt reports she has also seen improvement with her consistency in working out and eating healthy. Pt states she hasn't taking her working out to the extreme and has been not engaging in any disordered eating. 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 Pt to continue IOP to promote use of healthy coping skills, challenge distorted thoughts, and prevent decompensation. Time Stopped:: 09:55
--- NOTE | 2025-01-27 09:05 | BH.SGPN.GN ---
Behaviors/Verbalizations/Mental Status: [] Eye contact is good. Motor activity is appropriate. Appearance is casual. Speech is Appropriate. Mood is anxious. Affect is congruent. Thoughts are linear and logical. No evidence of psychosis. Reviewed daily check in sheet and no reports of suicidal ideations or intent. Client Response/Progress/Benefit: [] Pt participated at times during the group discussions. Attentive. Daily symptom tracker notes minimal distress. I'm optimistic for the most part. Reports that she is sticking with changing her perspectives on outlook to encourage motivation and engagement. Gave examples. Working for things make you feel more accomplished. Her mood and motivation have improved however remain fragile as a comment or stational stressor can result in significant decompensation. Emotion is optimistic. Benefited from group support,encouragement, and feedback. Will continue in IOP to prevent decompensation, stabilize mood, and increase healthy coping. Narrative Note: []
--- NOTE | 2025-01-27 10:15 | BH.SGPN.GN ---
Behaviors/Verbalizations/Mental Status: []Pt alert and oriented, neatly dressed and groomed. Eye contact good. Motor activity appropriate. Speech within normal limits. Affect congruent-tearful at times, mood frustrated and anxious. Thoughts linear, logical, no signs of hallucinations or delusions. Client Response/Progress/Benefit: [] Pt was an active participant AEB taking notes and engaging in group activity. Connected with the topic of pitfalls and listened to group discussion on barriers that prevent from choosing a healthier path to mental wellness. Group worked together to identify examples of personal pitfalls. These examples included; having unrealistic expectations, not trusting, not asking for help, and shutting down. Pt benefited from group as Pt learned to better identify potential barriers to improving mental health symptoms. Pt also gained awareness of her own pitfall of wanting to shut down when things seem ?impossible.? Pt will continue IOP tx to increase distress tolerance, improve self-compassion, and reduce all or nothing thinking. ? Narrative Note: []
--- NOTE | 2025-01-27 11:10 | BH.SGPN.GN ---
Behaviors/Verbalizations/Mental Status: []Client alert and oriented, casually dressed and groomed. Eye contact good. Motor activity appropriate. Speech within normal limits. Affect congruent, mood inspired. Thoughts linear, logical, no signs of hallucinations or delusions. Client Response/Progress/Benefit: [] Pt receptive of session, engaged throughout AEB Pt actively listening and contributing to discussion as well as taking notes.? Pt participated in the experiential activity and did well to communicate ideas with peers and manage emotions. Pt attentive as group processed how the emotions and perspective of the group impacted the activity. Pt wanted to quit during the activity, but she challenged herself and receptive to feedback during the activity which helped peers. Group worked together to identify different coping skills to help manage pitfalls. Pt identified pitfalls they struggle with as all or nothing thinking, avoidance, and quitting when things get hard. Pt plans to work on their pitfall by ?continuing to work on my mindset.? Benefited from identifying personal pitfalls and strategies to overcome these pitfalls. Pt will continue IOP tx to prevent decompensation, improve self-confidence, and reduce negative self-talk. Narrative Note: []
--- NOTE | 2025-02-02 10:15 | BH.SGPN.GN ---
Behaviors/Verbalizations/Mental Status: [] Client alert and oriented, casually dressed and groomed. Eye contact good. Motor activity appropriate. Speech within normal limits. Affect congruent, mood euthymic. Thoughts linear, logical, no signs of hallucinations or delusions. Client Response/Progress/Benefit: [] Pt engaged in session AEB client listening attentively to peers and providing input. Attentive and contributed to discussion as group worked on defining self-forgiveness and identifying mental health benefit. Identified benefits as: reduce guilt/shame, increase self-confidence, decrease negative self-talk, healthier relationships, ect. ?Worked in small groups to identify factors that can make self-forgiveness difficult. Pt identified a personal barrier to self-forgiveness. Benefited from increased education on self-forgiveness, benefits, and what effects it. Pt will continue IOP tx to improve distress tolerance, challenge negative thoughts, and prevent decompensation.
--- NOTE | 2025-02-07 10:15 | BH.SGPN.GN ---
Behaviors/Verbalizations/Mental Status: [] Eye contact is good. Motor activity is appropriate. Appearance is casual. Speech is Appropriate. Mood is content. Affect is congruent. Thoughts are linear and logical. No evidence of psychosis. Client Response/Progress/Benefit: [] Pt engaged in session AEB listening attentively to others and providing input throughout. Pt engaged in activity, able to connect how it can be uncomfortable and difficult to practice acceptance when situations are out of one?s own control. Identified what they are struggling to accept in personal life. Worked with peer group to define acceptance and identify the benefits that acceptance can bring. Benefits included; reduce anxiety, reduced stress, helps one to focus on situations we can change, and decreased negative self-talk. Seemed to benefit from increased awareness of the meaning as well as the importance of acceptance. Will continue in IOP to improve self-compassion, challenge distortions, and prevent decompensation. Narrative Note: []
--- NOTE | 2025-02-07 11:15 | BH.SGPN.GN ---
Behaviors/Verbalizations/Mental Status: []Pt alert and oriented, casually dressed and groomed. Eye contact poor. Motor activity appropriate. Speech within normal limits. Affect congruent, mood depressed. Thoughts linear, logical, no signs of hallucinations or delusions. Client Response/Progress/Benefit: [] Pt responded well to session AEB taking notes and contributing to discussion throughout. Pt engaged as group continued discussion on acceptance and the mental health benefits of practicing acceptance. Pt and peers identified what makes acceptance challenging and pt completed a self-reflection exercise on what is hard to accept in pt's life. Pt identified something that is currently hard to accept as ?my mom?s opinion of me.? Pt stated by not accepting this, it leads to resentment, anger, and wanting to isolate. Group identified strategies to increase acceptance. Pt noted wanting to work on ?willingness to acknowledge that she may never change? as a strategy for improving acceptance. Pt appeared to benefit from gaining insight and learning strategies to increase acceptance. Pt will continue IOP tx to reduce avoidance and isolation, improve self-confidence, and combat distortions. Narrative Note: []
--- NOTE | 2025-02-07 19:06 | BH.MDN_ITS ---
Multi-Disciplinary Note Note 30-min Individual: Time Started:: 09:15 Date: 02/07/25 Purpose of session/treatment goals addressed:: Purpose of session was to address goals 1 and 2 from MTP. Eye Contact:: Fair Motor Activity:: Appropriate Appearance:: Casual Speech:: Appropriate Mood:: Anxious and Depressed Affect:: Constricted Thoughts:: Linear, Logical and No evidence of hallucinations/delusions noted Staff Interventions:: thought challenging, motivational interviewing, CBT techniques, discharge planning, strengths perspective and goal setting Client Response:: Client reported her mood has plummeted since putting on the combo hormone patch. Client reported she has gone downhill the last 10 days. Client stated she hasn't been working out and is staying in bed more often. Client reported she met with her doctor and a hysterectomy has been scheduled for 02/22/25. Client stated she feels like this is the best decision for her because her mental health and sleep have been all over the place which she believes is connected to her hormones. Client admitted she is putting a lot of confidence into the hysterectomy resolving a lot of her issues. Therapist and client discussed that client throughout her time in [facility] has often searched for the cure, often through medication change and now through hysterectomy. Client agreed this is something she does and is trying to be realistic that she might see improvement from her hysterectomy, but will still have more work to do to improve her mental health. Client reported she does plan to start grief counseling after she is recovered from her hysterectomy. Client stated in addition to struggling to do anything good for myself she has been struggling with comments her mom has been making. Client reported she has historically had conflict and issues with her mom but admits she doesn't do anything about it. Client stated she does feel she is in the right place to address some of her concerns with her mom because recognizes resentment will continue to build if she doesn't say something. Therapist encouraged client to write down a few thoughts of what she would like to address with her mom and it can be reviewed in next individual session. Client agreeable. Risks/Concerns:: Denies suicidal ideation, plan, or intention to date. Progress Toward Goals/Plan:: Decompensation noted with client reporting significantly struggling for the last 10 days. Client stated she was put on a hormone patch which she is attributing to the decompensation with mood. Client reported she went back to doing nothing good for herself. Client stated it is progress that she returned to IOP because in the past she would've just dropped out. Client and therapist created plan to help her bounce back from recent decompensation. Client reported she will discharge from IOP next week because she will be having surgery the following week. Plan is for client to continue IOP to challenge distortions, improve daily functioning, and prevent decompensation. Time Stopped:: 09:45
--- NOTE | 2025-02-10 09:00 | BH.SGPN.GN ---
Behaviors/Verbalizations/Mental Status: [] Eye contact is good. Motor activity is appropriate. Appearance is casual. Speech is Appropriate. Mood is dysthymic. Affect is congruent. Thoughts are linear and logical. No evidence of psychosis. Client Response/Progress/Benefit: [] Pt participated in group discussions. Attentive. ? It?s been a long 2 weeks?. ? I fell back into old thought patterns?. She reports negative thoughts revolving around ? I?m not good enough?. Group helped pt identified obstacles to progress and possible strategies however pt appeared reluctant to make changes stating ? may not be the best time?. Group challenged this perspective. Limited progress noted. Regression. Benefited from group support, encouragement, and feedback. Will continue in IOP prevent decompensation, increase healthy coping, and improve functioning. Narrative Note: []
--- NOTE | 2025-02-10 10:10 | BH.SGPN.GN ---
Behaviors/Verbalizations/Mental Status: [] Eye contact is fair. Motor activity is appropriate. Appearance is casual. Speech is Appropriate. Mood is dysthymic. Affect is constricted. Thoughts are linear and logical. No evidence of psychosis Client Response/Progress/Benefit: [] Pt receptive of session, actively engaged throughout AEB taking notes, providing input, and contributing in small group discussion. Appeared to connect with group topic of automatic thoughts and cognitive distortions, as well as the impact of thought patterns on mental health, coping behaviors, and relationships. This particular group is very heavy on psychoeducation and pt appeared to connect with distortions and how they can impact functioning. Identified struggling with all or nothing thinking distortion. Pt appeared to benefit from gaining insight on distorted thinking patterns and how this impacts overall mental health. Will continue IOP to improve distress tolerance, improve healthy coping skills, and prevent decompensation.
--- NOTE | 2025-02-10 11:10 | BH.SGPN.GN ---
Behaviors/Verbalizations/Mental Status: [] Eye contact is good. Motor activity is appropriate. Appearance is neat. Speech is Appropriate. Mood is euthymic. Affect is congruent. Thoughts are linear and logical. No evidence of psychosis. Client Response/Progress/Benefit: [] Pt was an active participant and responded well to session AEB input and examples during group activity. Group discussed and practiced methods of reframing cognitive distortions. Pt participated in identifying cognitive distortions when examples were provided. Pt discussed in group the different strategies to overcome the distortions. Pt identified cognitive distortion they used most often and made plan to identify and challenge thoughts that contribute to it as homework over the next couple of days. Pt did well in small group during experiential activity and helped group identify answers. Will continue tx to reduce use of self-sabotaging behaviors, improve self-compassion, and combat negative thinking patterns. ? Narrative Note: []
--- NOTE | 2025-02-11 09:02 | BH.SGPN.GN ---
Behaviors/Verbalizations/Mental Status: [] Pt alert and oriented, neat and casually dressed and groomed. Eye contact good. Motor activity appropriate. Speech within normal limits. Affect congruent, mood depressed. Thoughts linear, logical, no signs of hallucinations or delusions. Reviewed pt?s symptom tracker, pt reports suicidal ideation as a 0/5. Denies plan or intention. Client Response/Progress/Benefit: [] Client responded well to session as evidenced by listening attentively to others, providing feedback, and processing with group. Per symptom tracker client reported a 3/5 for depression and a 1/5 for anxiety. Client reported mental health positive as challenging herself to get to group today despite difficulties with negative self-talk. Shared looking forward to going to the [employer] football game with her son this evening as well. Additional win noted as plans for a hysterectomy in two weeks which she is hopeful will reduce pain and improve hormonal balance. Stressor noted as waking up feeling low today. Client seemed to benefit from support from others and the group environment. Client to continue IOP to improve self-talk, improve mood stability, and prevent decompensation. Narrative Note: [] Behaviors/Verbalizations/Mental Status: [] Pt alert and oriented, neat and casually dressed and groomed. Eye contact good. Motor activity appropriate. Speech within normal limits. Affect congruent, mood depressed. Thoughts linear, logical, no signs of hallucinations or delusions. Reviewed pt?s symptom tracker, pt reports suicidal ideation as a 0/5. Denies plan or intention. Client Response/Progress/Benefit: [] Client responded well to session as evidenced by listening attentively to others, providing feedback, and processing with group. Per symptom tracker client reported a 3/5 for depression and a 1/5 for anxiety. Client reported mental health positive as challenging herself to get to group today despite difficulties with negative self-talk. Shared looking forward to going to the [employer] football game with her son this evening as well. Additional win noted as plans for a hysterectomy in two weeks which she is hopeful will reduce pain and improve hormonal balance. Stressor noted as waking up feeling low today. Client seemed to benefit from support from others and the group environment. Client to continue IOP to improve self-talk, improve mood stability, and prevent decompensation. Narrative Note: []
--- NOTE | 2025-02-11 10:15 | BH.SGPN.GN ---
Behaviors/Verbalizations/Mental Status: []Pt alert and oriented, neatly dressed and groomed. Eye contact good. Motor activity appropriate. Speech within normal limits. Affect congruent, mood dysthymic. Thoughts linear, logical, no signs of hallucinations or delusions. Client Response/Progress/Benefit: [] Pt was an attentive and active participant, AEB taking notes and providing input in group discussion. Attentive during psychoeducation. Pt engaged during interactive discussion in which the group defined self-care and discussed its benefits. Group discussed barriers and benefits to self-care. Identified benefits as being more productive, less physical pain, feeling happier, less irritability, and being more capable. Pt participated in small groups where they worked to identify and challenged common self-care ?myths?. Benefited from increased awareness of self-care, its benefits, and the consequences of not utilizing self-care strategies. Pt connected with myths of self-care being selfish and not being worth of self-care. Will continue IOP tx to prevent use of self-sabotaging behaviors, improve daily functioning, and improve self-compassion. Narrative Note: []
--- NOTE | 2025-02-11 11:10 | BH.SGPN.GN ---
Behaviors/Verbalizations/Mental Status: []Pt alert and oriented, casually dressed and groomed. Eye contact fair. Motor activity appropriate. Speech within normal limits. Affect constricted, mood dysthymic. Thoughts linear, logical, no signs of hallucinations or delusions. Client Response/Progress/Benefit: []Pt engaged participant AEB completing self-assessment worksheet and providing input throughout discussion. Participated in group discussion on the various areas of self-care. Pt completed worksheet identifying current self-care practices and what self-care activities pt wants to start using. Pt engaged in self-reflection activity in which pt's were asked to identify one area of self-care they would like to improve upon. Pt completed the task but chose to not share with the group. Appeared to benefit from completing the self-care evaluation and gaining insights into current self-care practices, as well as identifying areas in which pt ?would like to improve upon.?Will continue IOP to challenge disotrted thoughts, improve confidence, and prevent decompensation.
--- NOTE | 2025-02-14 09:00 | BH.SGPN.GN ---
Behaviors/Verbalizations/Mental Status: [] Pt alert and oriented, Neatly dressed and groomed. Eye contact good. Motor activity appropriate. Speech within normal limits. Affect congruent, mood anxious. Thoughts linear, logical, no signs of hallucinations or delusions. Reviewed pt?s symptom tracker, 0/5 with 5 being severe for risk for suicidal ideation, indicates a 0/5 for plan, and intent to kill self. Pt does not appear to be imminent risk to harm self.02/14/25. Client Response/Progress/Benefit: []Pt was an active participant in group discussions. Attentive. Per patients daily symptom tracker, pt indicates a 2/5 for depression and a 1/5 for anxiety, with 5 being severe. Pt shared mental health positives as attending a football game with son for her birthday. She stated that she is very close with her son and was happy that he wanted to spend time with her despite him being a teenager. Pt also reported meeting a parent of her son's friend whom she connected well with. Pt was glad that she agreed to go to the game as she reports not leaving the house very often. Pt struggled to find another positive, but was able to state finishing IOP as her other positive. Pt's stressor was feeling triggered at the football game after seeing couples there. She also reported struggling with sleep for the past few days. Pt was supportive and attentive to others in the group. Pt seemed to benefit from support from peers. Will discharge from IOP on 02/15/25. .
--- NOTE | 2025-02-14 10:10 | BH.SGPN.GN ---
Behaviors/Verbalizations/Mental Status: []Pt alert and oriented, casually dressed and groomed. Eye contact good. Motor activity appropriate. Speech within normal limits. Affect congruent, mood content. Thoughts linear, logical, no signs of hallucinations or delusions. Client Response/Progress/Benefit: [] Pt receptive to session AEB contributing to group discussion, as well as listening attentively to others, and taking notes. Worked with group to brainstorm the positive and negative aspects of stress on physical and mental health as well as the impact of distress on performance, relationships, and mental health. Pt shared their current personal top stressors to be: grief, finances, and physical health. Shared when feeling overwhelmed with stress pt tends become angry. Benefited from increased awareness of positive and negative stress as well as how stress impact individuals. Will continue in IOP to prevent decompensation, improve daily functioning, and reduce negative thinking patterns. Narrative Note: []
--- NOTE | 2025-02-14 19:06 | BH.MDN ---
Multi-Disciplinary Note Note 30-min Individual: Time Started:: 11:13 Date: 02/14/25 Purpose of session/treatment goals addressed:: Purpose of session was to identify treatment progress, complete maintenance plan, and identify aftercare plans. Eye Contact:: Fair Motor Activity:: Appropriate Appearance:: Neat Speech:: Appropriate Mood:: Dysthymic Affect:: Congruent Thoughts:: Linear, Logical and No evidence of hallucinations/delusions noted Staff Interventions:: thought challenging, CBT techniques, discharge planning, strengths perspective and other (maintenance plan) Client Response:: Client reported she has her hysterectomy surgery next week and is hoping she will notice benefits to her mood following the surgery. Client stated she does still's feel somewhat down but not depressed. Client reported she is starting to worry about little things. Client stated part of her wants to go back to numbing because she does not want to feel the worry and anxiety but recognizes numbing does not resolve anything. Client reported she is feeling worried that now that IOP is completed she needs to get a job. Client stated she is unsure if she is ready to get a job but is feeling pressure to feel more productive since she will be in intensive treatment. Client reported she can note progress with then herself with being more consistent and attending IOP and improved follow-through on some of the skills and goals throughout the program. Client stated she does feel like adjustments with her hormones have negatively impacted her treatment in the last few weeks which is why she ultimately decided to have her hysterectomy next week. Client reported she does have a strong belief that her hormones are part of the reason her mental health has been up and down lately. Client did work with therapist to complete maintenance plan in which she identified potential triggers that can bring that mental struggle, warning signs of mental decline, self-care she can engage in on a consistent basis, and healthy coping skills. Client stated she we will be reaching out to Yen at [facility] [place] to start grief therapy but is not going to start until the end of February to give herself time to recover from her hysterectomy. Client stated she has a psychiatry appointment Dr. Venegas on March 03. Risks/Concerns:: Denies suicidal ideation, plan, and intention. Future oriented. Progress Toward Goals/Plan:: Per DSM 5 cross cutting scale pt's depression decreased by 33%, anxiety decreased by 75%, and overall mental health symptoms decreased by 42%. Pt's changes in hormone therapy had negative impact on her treatment throughout the end of her treatment in IOP. Pt stated due to her changes in hormones she has scheduled a hysterectomy because she is confident after speaking to her TRAIN DRIVER that this could have positive impact on her mood. Patient stated she believes this is a contributing factor to why her depression did not decreases significantly throughout the IOP program. Patient is established with psychiatry care with Dr. Venegas and has an appointment on March 03. Patient stated she will reach out to a individual therapist Yen singh [facility] to begin grief therapy and will do this at the end of February once she is fully recovered from her hysterectomy. Time Stopped:: 11:50
--- NOTE | 2025-02-14 19:10 | BH.DS_ITS ---
Discharge Summary Demographics Date of Admission:: 12/22/24 Discharge Date: 02/14/25 Presenting Problems at Admission:: Describes mood right now as indifferent. Does further elaborate that she is ok. Does find that she finds it hard to get out of the house because she is embarrassed of her weight. Having trouble finding corrie and happiness, but unsure if part of this secondary to constantly worrying about her weight. Spends hours a day looking at herself in mirror. Formerly worked out for years but has been much less apt to do so more recently. Describes at times binge eating as a form of self harm. Describes having some fries and onion rings the other night. Describes guilt and worthlessness after doing. Had been doing a lot but trying to restrict more recently. Describes a history of having panic attacks. Discharge Diagnoses:: MDD (major depressive disorder), recurrent episode, severe F33.2 Body Dysmorphic Disorder Insomnia Reason for Discharge:: Client is having a hysterectomy next week due to having hormone issues that have been impacting her sleep and mood. Client has decided she needs to address her physical health issues which she is confident are impacting her mood and sleep. Client has shown progress since starting IOP and will discharge from [facility]. Treatment Progress During Treatment & Response: Per DSM 5 cross cutting scale pt's depression decreased by 33%, anxiety decreased by 75%, and overall mental health symptoms decreased by 42%. Pt's changes in hormone therapy had negative impact on her treatment throughout the end of her treatment in [facility]. Pt stated due to her changes in hormones she has scheduled a hysterectomy because she is confident after speaking to her BUSINESS CONTINUITY SPECIALIST that this could have positive impact on her mood. Patient stated she believes this is a contributing factor to why her depression did not decreases significantly throughout the IOP program. Issues Still to be Addressed:: Client could benefit from grief therapy and she is planning to start this end of February. Client was going to seek eating disorder treatment but client ultimately decided she didn't think it was necessary at this time. Discharge Recommendations/Instructions:: Client recommended to continue Psychiatry care with Dr. Venegas and has an appointment on March 03. Client stated she will start grief therapy end of February once she is recovered from her surgery. Discharge Handout
== END 2025-02-15 11:55 | disposition home or self-care (01) ==
LOC: BHIOP 08:04
PROVIDERS: PCP Internal Medicine; Referring Provider Student in an Organized Health Care Education/Training Program; Visit Provider Student in an Organized Health Care Education/Training Program
DX: F33.2 Major depressive disorder, recurrent severe without psychotic features (principal); F45.22 Body dysmorphic disorder; G47.00 Insomnia, unspecified
CPT/HCPCS: H2012; H2020; S9480; 90832; 90834